=== PATIENT | female | born 1950 | race African-American/Black ===

== ENCOUNTER → 2016-10-15 | Outpatient (CLI) | payer MEDICARE, OTHER ==
--- NOTE | 2016-10-15 10:51 | USB ---
Reason for exam: follow-up at short interval from prior study. History: Patient is postmenopausal and had first child at age 34. Physical Findings: Nurse did not find any significant physical abnormalities on exam. US Breast RT Right breast ultrasound demonstrates a 3 x 1mm lesion too small to characterize at 9 o'clock, suspected tiny cyst or slight duct ectasia versus 3 x 2 x 4mm previously. These results were verbally communicated with the patient and result sheet given to the patient on 10/15/16. ASSESSMENT: Probably benign, BI-RAD 3 RECOMMENDATION: Follow-up diagnostic mammogram of both breasts in 6 months.
== END | disposition home or self-care (01) ==
LOC: RADUSWWP 09:35
PROVIDERS: ATTEND Surgery
DX: R92.8 Other abnormal and inconclusive findings on diagnostic imaging of breast (principal)

== ENCOUNTER 2017-04-22 05:17 | Observation (INO) | payer MEDICARE ==
[2017-04-22] MEDS ORDERED: IPRATROPIUM-ALBUTEROL 3 ML NEB INHALATION STA (05:27)
[2017-04-22] MEDS ORDERED: SODIUM CHLORIDE 0.9% 1,000 ML IV STA (05:27)
[2017-04-22] MEDS ORDERED: SODIUM CHLORIDE 0.9% 500 ML IV STA (05:27)
--- NOTE | 2017-04-22 05:27 | ED ---
General Adult HPI - General Chief complaint: Shortness of Breath Stated complaint: Coughing x 4 weeks Time Seen by Provider: 04/22/17 05:26 Source: patient, RN notes reviewed, old records reviewed Mode of arrival: ambulatory Limitations: no limitations - History of Present Illness Initial comments: This is a 66-year-old female ER for evaluation. This patient presents today for evaluation regarding shortness of breath. Patient does have increased cough and congestion, no history of asthma nonsmoker. Patient denies any viral exposures, chest pain does have chest pain with deep breath as well. - Related Data Home Medications Medication Instructions Recorded Confirmed Hydrocodone/Acetaminophen 1 tab PO TID PRN 05/08/14 04/22/17 [Hydrocodone/Acetaminophen 7.5-325] Allergies Allergy/AdvReac Type Severity Reaction Status Date / Time No Known Allergies Allergy Verified 04/22/17 06:55 Review of Systems ROS Statement: Those systems with pertinent positive or pertinent negative responses have been documented in the HPI. ROS Other: All systems not noted in ROS Statement are negative. Past Medical History Additional Past Medical History / Comment(s): back problems, EDEMA History of Any Multi-Drug Resistant Organisms: None Reported Past Surgical History: Back Surgery, Hysterectomy Additional Past Surgical History / Comment(s): COLONOSCOPY, lower extremety edema Past Anesthesia/Blood Transfusion Reactions: No Reported Reaction Past Psychological History: No Psychological Hx Reported Smoking Status: Former smoker Past Alcohol Use History: None Reported Past Drug Use History: None Reported - Past Family History Brother(s) Family Medical History: Cancer Sister(s) Family Medical History: Cancer General Exam Limitations: no limitations General appearance: alert, in no apparent distress Head exam: Present: atraumatic, normocephalic, normal inspection Eye exam: Present: normal appearance, PERRL, EOMI. Absent: scleral icterus, conjunctival injection, periorbital swelling ENT exam: Present: normal exam, mucous membranes moist Neck exam: Present: normal inspection. Absent: tenderness, meningismus, lymphadenopathy Respiratory exam: Present: normal lung sounds bilaterally, wheezes, accessory muscle use, decreased breath sounds, prolonged expiratory. Absent: respiratory distress, rales, rhonchi, stridor Cardiovascular Exam: Present: regular rate, normal rhythm, normal heart sounds. Absent: systolic murmur, diastolic murmur, rubs, gallop, clicks GI/Abdominal exam: Present: soft, normal bowel sounds. Absent: distended, tenderness, guarding, rebound, rigid Extremities exam: Present: normal inspection, full ROM, normal capillary refill. Absent: tenderness, pedal edema, joint swelling, calf tenderness Back exam: Present: normal inspection Neurological exam: Present: alert, oriented X3, CN II-XII intact Psychiatric exam: Present: normal affect, normal mood Skin exam: Present: warm, dry, intact, normal color. Absent: rash Course Vital Signs 04/22/17 04/22/17 04/22/17 05:18 05:43 06:00 Temperature 98 F Pulse Rate 91 120 H 112 H Respiratory 18 24 Rate Blood Pressure 154/82 O2 Sat by Pulse 99 Oximetry 04/22/17 06:28 Temperature Pulse Rate 82 Respiratory 20 Rate Blood Pressure 164/96 O2 Sat by Pulse 97 Oximetry EKG Findings - EKG Comments: EKG Findings:: EKG shows sinus tachycardia rate of 103, [place] 150, QRS 62, QTC 495 Medical Decision Making - Medical Decision Making 66 [place] or shortness of breath, positive wheezing, severe wheezing even after breathing treatment. Patient be admitted for COPD exacerbation breathing treatments and monitoring her pulmonary status - Lab Data Result diagrams: 04/22/17 05:40 04/23/17 09:54 Lab Results 04/22/17 04/22/17 04/22/17 Range/Units 05:40 05:40 05:40 WBC 7.3 (3.8-10.6) k/uL RBC 4.98 (3.80-5.40) m/uL Hgb 14.5 (11.4-16.0) gm/dL Hct 43.0 (34.0-46.0) % MCV 86.3 (80.0-100.0) fL MCH 29.1 (25.0-35.0) pg MCHC 33.7 (31.0-37.0) g/dL RDW 14.2 (11.5-15.5) % Plt Count 246 (150-450) k/uL Neutrophils % 48 % Lymphocytes % 38 % Monocytes % 5 % Eosinophils % 7 % Basophils % 1 % Neutrophils # 3.5 (1.3-7.7) k/uL Lymphocytes # 2.8 (1.0-4.8) k/uL Monocytes # 0.3 (0-1.0) k/uL Eosinophils # 0.5 (0-0.7) k/uL Basophils # 0.1 (0-0.2) k/uL PT (9.0-12.0) sec INR (<1.2) APTT (22.0-30.0) sec D-Dimer (<0.60) mg/L FEU Sodium 143 (137-145) mmol/L Potassium 3.7 (3.5-5.1) mmol/L Chloride 111 H (98-107) mmol/L Carbon Dioxide 21 L (22-30) mmol/L Anion Gap 11 mmol/L BUN 12 (7-17) mg/dL Creatinine 0.70 (0.52-1.04) mg/dL Est GFR (MDRD) Af Amer >60 (>60 ml/min/1.73 sqM) Est GFR (MDRD) Non-Af >60 (>60 ml/min/1.73 sqM) Glucose 93 (74-99) mg/dL Calcium 9.9 (8.4-10.2) mg/dL Magnesium 1.8 (1.6-2.3) mg/dL Total Bilirubin 0.6 (0.2-1.3) mg/dL AST 29 (14-36) U/L ALT 44 (9-52) U/L Alkaline Phosphatase 76 (38-126) U/L Total Creatine Kinase 177 H (30-135) U/L CK-MB (CK-2) 1.3 (0.0-2.4) ng/mL CK-MB (CK-2) Rel Index 0.7 Troponin I <0.012 (0.000-0.034) ng/mL Total Protein 7.0 (6.3-8.2) g/dL Albumin 4.3 (3.5-5.0) g/dL 04/22/17 Range/Units 05:40 WBC (3.8-10.6) k/uL RBC (3.80-5.40) m/uL Hgb (11.4-16.0) gm/dL Hct (34.0-46.0) % MCV (80.0-100.0) fL MCH (25.0-35.0) pg MCHC (31.0-37.0) g/dL RDW (11.5-15.5) % Plt Count (150-450) k/uL Neutrophils % % Lymphocytes % % Monocytes % % Eosinophils % % Basophils % % Neutrophils # (1.3-7.7) k/uL Lymphocytes # (1.0-4.8) k/uL Monocytes # (0-1.0) k/uL Eosinophils # (0-0.7) k/uL Basophils # (0-0.2) k/uL PT 10.0 (9.0-12.0) sec INR 1.0 (<1.2) APTT 24.8 (22.0-30.0) sec D-Dimer 0.44 (<0.60) mg/L FEU Sodium (137-145) mmol/L Potassium (3.5-5.1) mmol/L Chloride (98-107) mmol/L Carbon Dioxide (22-30) mmol/L Anion Gap mmol/L BUN (7-17) mg/dL Creatinine (0.52-1.04) mg/dL Est GFR (MDRD) Af Amer (>60 ml/min/1.73 sqM) Est GFR (MDRD) Non-Af (>60 ml/min/1.73 sqM) Glucose (74-99) mg/dL Calcium (8.4-10.2) mg/dL Magnesium (1.6-2.3) mg/dL Total Bilirubin (0.2-1.3) mg/dL AST (14-36) U/L ALT (9-52) U/L Alkaline Phosphatase (38-126) U/L Total Creatine Kinase (30-135) U/L CK-MB (CK-2) (0.0-2.4) ng/mL CK-MB (CK-2) Rel Index Troponin I (0.000-0.034) ng/mL Total Protein (6.3-8.2) g/dL Albumin (3.5-5.0) g/dL - Radiology Data Radiology results: report reviewed (Chest x-ray is negative for acute disease), image reviewed Disposition Clinical Impression: Acute exacerbation of chronic obstructive airways disease Disposition: ADMITTED IP TO THIS [facility] Condition: Fair
[2017-04-22] MEDS ORDERED: methylPREDNISolone SOD SUCCI 125 MG/2 ML VIAL IV STA (05:30)
[2017-04-22] MEDS ORDERED: ALBUTEROL NEBULIZED 2.5 MG/3 ML INHALATION STA (05:30)
[2017-04-22] MEDS ORDERED: IPRATROPIUM 0.5 MG/2.5 ML NEBU INHALATION STA (05:30)
[2017-04-22 05:49] LABS: Basophils # (A) 0.1 k/uL (0-0.2); Basophils % (A) 1 %; CH 29.9; CHCM 34.8; Eosinophils # (A) 0.5 k/uL (0-0.7); Eosinophils % (A) 7 %; HDW 2.77; HGB 14.5 gm/dL (11.4-16.0); Luc # (Auto) 0.14; Luc % (Auto) 2; Lymphocytes # (A) 2.8 k/uL (1.0-4.8); Lymphocytes % (A) 38 %; MCH 29.1 pg (25.0-35.0); MCHC 33.7 g/dL (31.0-37.0); MCV 86.3 fL (80.0-100.0); Mean Platelet Volume 7.9; Monocytes # (A) 0.3 k/uL (0-1.0); Monocytes % (A) 5 %; Neutrophils # (A) 3.5 k/uL (1.3-7.7); Neutrophils % (A) 48 %; RBC 4.98 m/uL (3.80-5.40); RDW 14.2 % (11.5-15.5); WBC 7.3 k/uL (3.8-10.6); WBC (Perox) 6.93
[2017-04-22 05:58] LABS: ALT 44 U/L (9-52); AST 29 U/L (14-36); Alkaline Phosphatase 76 U/L (38-126); Anion Gap 11 mmol/L; Blood Urea Nitrogen 12 mg/dL (7-17); Calcium 9.9 mg/dL (8.4-10.2); Carbon Dioxide 21 mmol/L (22-30); Chloride 111 mmol/L (98-107); Glucose 93 mg/dL (74-99); Magnesium 1.8 mg/dL (1.6-2.3); Non-African American GFR(MDRD) >60 (>60 ml/min/1.73 sqM); Potassium 3.7 mmol/L (3.5-5.1); Sodium 143 mmol/L (137-145); Total Bilirubin 0.6 mg/dL (0.2-1.3)
[2017-04-22 06:05] LABS: Partial Thromboplastin Time 24.8 sec (22.0-30.0)
[2017-04-22 06:07] LABS: Creatine Kinase 177 U/L (30-135)
[2017-04-22 06:20] LABS: Creatine Kinase MB 1.3 ng/mL (0.0-2.4); Troponin I <0.012 ng/mL (0.000-0.034)
[2017-04-22] MEDS ORDERED: AZITHROMYCIN 500 MG in SODIUM CHLORIDE 0.9% 250 ML IVPB STA (06:42)
--- NOTE | 2017-04-22 07:13 | XR ---
EXAM: XR Chest, 2 Views CLINICAL HISTORY: Reason: difficulty breathing sob/cough/wheezing x 1 month. TECHNIQUE: Frontal and lateral views of the chest. COMPARISON: 04/27/16 FINDINGS: Lungs: Unremarkable. No consolidation. Pleural space: Unremarkable. No pneumothorax. Heart: Unremarkable. No cardiomegaly. Mediastinum: Unremarkable. Bones/joints: Mild degenerative changes of the thoracic spine. Vasculature: Stable tortuous aorta. IMPRESSION: No evidence of acute cardiopulmonary disease.
[2017-04-22] MEDS: SODIUM CHLORIDE 0.9% 1,000 ML IV SCH ×2 (08:48→18:21)
[2017-04-22] MEDS: ENOXAPARIN 40 MG/0.4 ML SYRINGE SQ SCH (12:37)
[2017-04-22] MEDS: methylPREDNISolone SOD SUCCI 125 MG/2 ML VIAL IV SCH ×3 (12:37→23:11)
[2017-04-22 15:19] VITALS: BMI 31.1
[2017-04-22] MEDS ORDERED: HYDROcodone/APAP 7.5-325MG 1 EACH TAB PO PRN (16:12)
--- NOTE | 2017-04-22 16:12 | P.HPIM ---
History of Present Illness H&P Date: 04/22/17 Chief Complaint: As of breath 66-year-old female presented on the day of admission to the emergency room to be evaluated for chief complaint of developing shortness of breath symptomatic increased cough decreased endurance. Patient denied any viral exposures. Denying chest pain. Patient was seen in the emergency room admitted to the services of the attending with the plan to treat the patient for an acute exacerbation of COPD. Review of Systems Essentially unremarkable except as mentioned in the present illness Past Medical History Past Medical History: Asthma, COPD Additional Past Medical History / Comment(s): Pt states her primary care physician has thought she probably had COPD, bronchitis, sinus problems at times , DDD, back pain, bilateral lower extremity edema, neuropathy bilateral legs/ feet at times, diverticular dx. History of Any Multi-Drug Resistant Organisms: None Reported Past Surgical History: Back Surgery, Hysterectomy Additional Past Surgical History / Comment(s): COLONOSCOPY, bilateral eyes cataract removal with lens implants, hemorrhoidectomy, steroid injections to back, low back surgery. Past Anesthesia/Blood Transfusion Reactions: No Reported Reaction Smoking Status: Former smoker - Past Family History Brother(s) Family Medical History: Cancer Additional Family Medical History / Comment(s): One brother of lung cancer and another brother of stomach cancer. Sister(s) Family Medical History: Cancer Additional Family Medical History / Comment(s): Sister of "female" cancer. Medications and Allergies Home Medications Medication Instructions Recorded Confirmed Type Hydrocodone/Acetaminophen 1 tab PO TID PRN 05/08/14 04/22/17 History [Hydrocodone/Acetaminophen 7.5-325] Allergies Allergy/AdvReac Type Severity Reaction Status Date / Time No Known Allergies Allergy Verified 04/22/17 06:55 Physical Exam Vitals: Vital Signs Temp Pulse Pulse Resp BP BP BP 04/22/17 15:35 98.7 F 100 18 126/65 04/22/17 12:00 84 18 04/22/17 11:37 98.4 F 84 18 117/62 04/22/17 08:00 102 H 18 04/22/17 07:55 97.4 F L 102 H 18 166/96 04/22/17 06:28 82 20 164/96 04/22/17 06:00 112 H 04/22/17 05:43 120 H 24 04/22/17 05:18 98 F 91 18 154/82 Pulse Ox 04/22/17 15:35 94 L 04/22/17 12:00 04/22/17 11:37 95 04/22/17 08:00 04/22/17 07:55 95 04/22/17 06:28 97 04/22/17 06:00 04/22/17 05:43 04/22/17 05:18 99 Intake and Output 04/22/17 04/22/17 04/22/17 06:59 14:59 22:59 Intake Total 480 Balance 480 Intake: Oral 480 Other: Voiding Method Toilet Weight 72.575 kg 72.4 kg Patient Weight 04/23/17 06:59 Weight 72.4 kg GENERAL APPEARANCE: 66-year-old patient is alert, oriented, in no acute distress. VITAL SIGNS: Reviewed HEENT: Head is normocephalic and atraumatic. Pupils are equal and reactive. The nares are patent. Oropharynx is clear without lesions. NECK: Supple without lymphadenopathy. Traches midline. HEART: S1, S2. Regular rate and rhythm. No murmur noted denying chest pain LUNGS: I lateral prolonged expiratory wheezing noted no cough noted ABDOMEN: Soft, nontender, nondistended with good bowel sounds. No peritoneal signs. No palpable organomegaly or masses. EXTREMITIES: Normal skin color and turgor. No cyanosis, rash, ulceration, clubbing or edema. Radial pedal pulses are 2/4 bilaterally. NEUROLOGICAL: No focal deficits. Strength and sensation are grossly intact. Results CBC & Chem 7: 04/22/17 05:40 04/22/17 05:40 Labs: Abnormal Lab Results - Last 24 Hours (Table) 04/22/17 04/22/17 Range/Units 05:40 05:40 Chloride 111 H (98-107) mmol/L Carbon Dioxide 21 L (22-30) mmol/L Total Creatine Kinase 177 H (30-135) U/L Thrombosis Risk Factor Assmnt - Choose All That Apply Any of the Below Risk Factors Present?: Yes Each Factor Represents 1 point: Abnormal pulmonary function (COPD), Obesity ( BMI >25) Other Risk Factors: Yes Each Risk Factor Represents 2 Points: Age 61-74 years Other congenital or acquired thrombophilia - If yes, enter type in comment: No Thrombosis Risk Factor Assessment Total Risk Factor Score: 4 Thrombosis Risk Factor Assessment Level: Moderate Risk Assessment and Plan Plan: Impression Present on admission shortness of breath due to an acute exacerbation COPD Chronic pain with narcotic dependency Known COPD Plan Respiratory treatments as ordered Solu-Medrol 60 IV every 6 monitor the response DVT and GI prophylaxis IV zithomax as ordered Further recommendations pending The above impression and plan of care have been discussed and directed by signing physician. Ana Grady nurse practitioner acting as scribe for signing physician.
[2017-04-22] MEDS: IPRATROPIUM-ALBUTEROL 3 ML NEB INHALATION PRN ×2 (16:54→20:52)
[2017-04-22 20:39] LABS: Glucose,Whole Blood 123 mg/dL (75-99)
[2017-04-22] MEDS: INSULIN LISPRO (humaLOG) 300 UNIT/3 ML VIAL SQ SCH (20:48)
[2017-04-22] MEDS: FAMOTIDINE 20 MG TAB PO SCH (20:49)
[2017-04-22] MEDS: MONTELUKAST 10 MG TAB PO SCH (20:49)
[2017-04-22] MEDS: BUDESONIDE 0.5 MG/2 ML NEBU INHALATION SCH (20:52)
[2017-04-23] MEDS: methylPREDNISolone SOD SUCCI 125 MG/2 ML VIAL IV SCH (06:02)
[2017-04-23 07:10] LABS: Glucose,Whole Blood 116 mg/dL (75-99)
[2017-04-23] MEDS ORDERED: ACETAMINOPHEN TAB 325 MG TAB PO PRN (07:45)
[2017-04-23] MEDS: INSULIN LISPRO (humaLOG) 300 UNIT/3 ML VIAL SQ SCH ×3 (07:45→18:12)
[2017-04-23] MEDS: ENOXAPARIN 40 MG/0.4 ML SYRINGE SQ SCH (08:52)
[2017-04-23] MEDS ORDERED: AZITHROMYCIN 500 MG in SODIUM CHLORIDE 0.9% 250 ML IVPB SCH (09:00)
[2017-04-23] MEDS: IPRATROPIUM-ALBUTEROL 3 ML NEB INHALATION PRN ×3 (09:03→18:02)
[2017-04-23] MEDS: BUDESONIDE 0.5 MG/2 ML NEBU INHALATION SCH ×2 (09:03→21:15)
--- NOTE | 2017-04-23 09:54 | P.PN ---
Subjective 66-year-old female being seen at the request of nursing staff after patient developed an acute onset episode of increase in heart rate up into the 140s with chest tightness twelve-lead EKG shows sinus tachycardia heart rate in the 130s. Patient states that she feels like her heart is racing tightness in the chest. Patient's initial presentation to the emergency room was checked for shortness of breath symptomatic felt to be due to an acute exacerbation of COPD. Patient denies prior episodes. lung alas coarse rhonchi there is no audible wheezing this morning patient has no cardiac history Objective - Vital Signs Vital signs: Vital Signs Temp 97.8 F 04/23/17 08:00 Pulse 92 04/23/17 09:12 Resp 18 04/23/17 08:00 BP 137/80 04/23/17 08:00 Pulse Ox 94 L 04/23/17 08:00 Intake & Output 04/22/17 04/23/17 04/23/17 18:59 06:59 18:59 Intake Total 720 600 Balance 720 600 Weight 72.4 kg Intake: IV 400 Sodium Chloride 0.9% 1, 400 000 ml @ 100 mls/hr IV . Q10H [facility] Rx#:[id number] Oral 720 200 Other: Voiding Method Toilet Toilet Toilet Diaper Diaper # Voids 2 1 1 - Exam Physical exam 66-year-old female sitting up in bed states she can feel her heart feels like it 's racing appears in no acute distress Lungs coarse rhonchi no wheezing noted no cough noted on room air Heart S1-S2 audible regular no murmur noted Abdomen soft nontender reports no nausea vomiting Extremities no edema to upper or lower extremities - Labs CBC & Chem 7: 04/22/17 05:40 04/22/17 05:40 Labs: Abnormal Lab Results - Last 24 Hours (Table) 04/22/17 04/23/17 Range/Units 20:31 07:06 POC Glucose (mg/dL) 123 H 116 H (75-99) mg/dL Microbiology - Last 24 Hours (Table) 04/22/17 06:55 Blood Culture - Preliminary Blood No Growth after 24 hours Assessment and Plan Plan: Impression Present on admission shortness of breath due to an acute exacerbation COPD Chronic pain with narcotic dependency Known COPD Sudden onset acute sinus tachycardia with heart palpitations Episode chest tightness Plan Respiratory treatments as ordered We'll stop Solu-Medrol 60 IV every 6 monitor the response DVT and GI prophylaxis IV zithomax as ordered Further recommendations pending Cardiac enzymes 3 sets Echocardiogram evaluate LV function Cardiology consultation requested The above impression and plan of care have been discussed and directed by signing physician. Ana Grady nurse practitioner acting as scribe for signing physician.
[2017-04-23 10:23] LABS: ALT 35 U/L (9-52); AST 23 U/L (14-36); Alkaline Phosphatase 75 U/L (38-126); Anion Gap 11 mmol/L; Blood Urea Nitrogen 10 mg/dL (7-17); Calcium 9.3 mg/dL (8.4-10.2); Carbon Dioxide 19 mmol/L (22-30); Chloride 114 mmol/L (98-107); Glucose 192 mg/dL (74-99); Magnesium 1.7 mg/dL (1.6-2.3); Non-African American GFR(MDRD) >60 (>60 ml/min/1.73 sqM); Potassium 3.6 mmol/L (3.5-5.1); Sodium 144 mmol/L (137-145); Total Bilirubin 0.5 mg/dL (0.2-1.3); Total Protein 6.8 g/dL (6.3-8.2)
[2017-04-23 12:07] LABS: Glucose,Whole Blood 122 mg/dL (75-99)
[2017-04-23 12:32] LABS: Hemoglobin A1C 5.5 % (4.2-6.1)
[2017-04-23] MEDS: ONDANSETRON 4 MG/2 ML VIAL IVP PRN ×2 (12:42→18:17)
[2017-04-23] MEDS: SODIUM CHLORIDE 0.9% 1,000 ML IV SCH ×2 (12:46→22:08)
[2017-04-23] MEDS: VERAPAMIL 40 MG TAB PO SCH ×2 (16:23→21:33)
[2017-04-23 17:01] LABS: Glucose,Whole Blood 103 mg/dL (75-99)
[2017-04-23] MEDS ORDERED: METOPROLOL TARTRATE 50 MG TAB PO STA (18:22)
--- NOTE | 2017-04-23 18:55 | P.CNPUL ---
History of Present Illness Consult date: 04/23/17 Requesting physician: Amador Guzman Reason for consult: dyspnea Chief complaint: Shortness of breath History of present illness: This is a very pleasant 66-year-old female patient who follows with Dr. Amador Guzman as her primary care physician. His a history of chronic neck and back pain, lower extremity edema, remote history of smoking and suspected COPD. She has been maintained on a Qvar 40 mg inhaler and Ventolin HFA. She has not been seen by a menu planner in the past. She states approximately one month ago she started having shortness of breath cough and congestion. She was treated with antibiotics 2 in the outpatient setting at which time she did get better but continued to have recurrence of shortness of breath. She presented here to the emergency room for the same. Her chest x-ray reveals no evidence of an acute cardiopulmonary process. He is seen today in consultation on the observation unit. She is currently awake and alert in no acute distress. She does state she has continued shortness of breath with cough and congestion. She is dyspneic on exertion. Been initiated on bronchodilators and azithromycin. She was intolerant to IV Solu-Medrol with complaints of palpitations. She is tolerating oral prednisone. Maintaining good O2 saturations in the mid 90s on room air. She's been afebrile. No leukocytosis. Blood cultures reveal no growth to date. Review of Systems 14 point review of system was conducted. All negative other than as mentioned in HPI. Past Medical History Past Medical History: Asthma, COPD Additional Past Medical History / Comment(s): back problems, EDEMA History of Any Multi-Drug Resistant Organisms: None Reported Past Surgical History: Back Surgery, Hysterectomy Additional Past Surgical History / Comment(s): COLONOSCOPY, lower extremety edema Past Anesthesia/Blood Transfusion Reactions: No Reported Reaction Past Psychological History: No Psychological Hx Reported Smoking Status: Former smoker Past Alcohol Use History: None Reported Past Drug Use History: None Reported - Past Family History Brother(s) Family Medical History: Cancer Additional Family Medical History / Comment(s): One brother of lung cancer and another brother of stomach cancer. Sister(s) Family Medical History: Cancer Additional Family Medical History / Comment(s): Sister of "female" cancer. Medications and Allergies Home Medications Medication Instructions Recorded Confirmed Type Hydrocodone/Acetaminophen 1 tab PO TID PRN 05/08/14 04/22/17 History [Hydrocodone/Acetaminophen 7.5-325] Allergies Allergy/AdvReac Type Severity Reaction Status Date / Time No Known Allergies Allergy Verified 04/22/17 06:55 Physical Exam Vitals: Vital Signs Temp Pulse Pulse Pulse Pulse Resp BP 04/23/17 18:14 108 H 04/23/17 18:02 100 04/23/17 16:00 97.8 F 100 16 127/75 04/23/17 12:17 110 H 14 04/23/17 12:05 110 H 14 04/23/17 12:00 97.7 F 113 H 14 141/59 04/23/17 09:46 130 H 04/23/17 09:12 92 04/23/17 09:05 92 04/23/17 08:00 97.8 F 96 18 137/80 04/23/17 03:54 98.1 F 95 18 140/78 04/23/17 03:16 16 04/22/17 23:46 98.4 F 104 H 16 127/68 04/22/17 23:42 18 04/22/17 21:02 84 04/22/17 20:52 88 04/22/17 19:46 98.4 F 106 H 18 145/78 04/22/17 19:40 18 Pulse Ox 04/23/17 18:14 04/23/17 18:02 95 04/23/17 16:00 95 04/23/17 12:17 04/23/17 12:05 04/23/17 12:00 96 04/23/17 09:46 04/23/17 09:12 04/23/17 09:05 04/23/17 08:00 94 L 04/23/17 03:54 95 04/23/17 03:16 04/22/17 23:46 94 L 04/22/17 23:42 04/22/17 21:02 04/22/17 20:52 04/22/17 19:46 95 04/22/17 19:40 Intake and Output 04/23/17 04/23/17 04/23/17 06:59 14:59 22:59 Intake Total 600 240 Balance 600 240 Intake: IV 400 Sodium Chloride 0.9% 1, 400 000 ml @ 100 mls/hr IV . Q10H [facility] Rx#:[id number] Oral 200 240 Other: Voiding Method Toilet Toilet Toilet Diaper Diaper Diaper # Voids 1 1 GENERAL EXAM: Alert, active, comfortable in no apparent distress. HEAD: Normocephalic. EYES: Normal reaction of pupils, equal size. NOSE: Clear with pink turbinates. THROAT: No erythema or exudates. NECK: No masses, no JVD. CHEST: No chest wall deformity. LUNGS: Equal air entry with no crackles, wheeze, rhonchi or dullness. CVS: S1 and S2 normal with no audible murmurs, regular rhythm. ABDOMEN: No hepatosplenomegaly, normal bowel sounds, no guarding or rigidity. SPINE: No scoliosis or deformity SKIN: No rashes CENTRAL NERVOUS SYSTEM: No focal deficits, tone is normal in all 4 extremities. Remedies: There is trace peripheral edema. No clubbing. Peripheral pulses are intact. Results - Laboratory Findings CBC and BMP: 04/22/17 05:40 04/23/17 09:54 PT/INR, D-dimer PT 10.0 sec (9.0-12.0) 04/22/17 05:40 INR 1.0 (<1.2) 04/22/17 05:40 D-Dimer 0.44 mg/L FEU (<0.60) 04/22/17 05:40 Abnormal lab findings: Abnormal Labs 04/22/17 04/22/17 04/22/17 05:40 05:40 20:31 Chloride 111 H Carbon Dioxide 21 L Glucose POC Glucose (mg/dL) 123 H Total Creatine Kinase 177 H TSH 04/23/17 04/23/17 04/23/17 07:06 09:54 09:54 Chloride 114 H Carbon Dioxide 19 L Glucose 192 H POC Glucose (mg/dL) 116 H Total Creatine Kinase TSH 0.432 L 04/23/17 04/23/17 12:04 16:53 Chloride Carbon Dioxide Glucose POC Glucose (mg/dL) 122 H 103 H Total Creatine Kinase TSH - Diagnostic Findings Chest x-ray: image reviewed (No acute cardiopulmonary process.) Assessment and Plan Plan: Impression: #1 Acute exacerbation of chronic obstructive pulmonary disease, complicated by purulent tracheobronchitis. Failed outpatient treatment. #2 Remote history of chronic tobacco use. #3 Chronic neck and back pain. #4 History of lower extremity peripheral edema. Her grafts plan: The patient was seen and evaluated by Dr. Flowers. Her chest x-ray and labs were reviewed. No evidence of pneumonia at this time. We'll continue with her bronchodilators, prednisone taper, empiric antibiotics in the form of azithromycin. She would benefit from an outpatient workup including full pulmonary function testing to evaluate the severity of her COPD and make recommendations for her maintenance medications. Could increase Qvar to 80 mg for now. Probable discharge in the a.m. We'll continue to follow. Time with Patient: Greater than 30
[2017-04-23] MEDS: MONTELUKAST 10 MG TAB PO SCH (19:23)
[2017-04-23] MEDS: FAMOTIDINE 20 MG TAB PO SCH (19:23)
--- NOTE | 2017-04-23 19:24 | ECHOF ---
Referral Reason:LV function MEASUREMENTS -------- HEIGHT: 127.0 cm WEIGHT: 72.6 kg BP: IVSd: 1.1 cm (0.6 - 1.1) LVIDd: 3.5 cm (3.9 - 5.3) LVPWd: 0.9 cm (0.6 - 1.1) IVSs: 1.2 cm LVIDs: 2.2 cm LVPWs: 1.2 cm LA Diam: 3.1 cm (2.7 - 3.8) LAESV Index (A-L): 13.23 ml/m Ao Diam: 2.8 cm (2.0 - 3.7) AV Cusp: 1.6 cm (1.5 - 2.6) LA Diam: 3.3 cm (2.7 - 3.8) MV EXCURSION: 15.792 mm (> 18.000) MV EF SLOPE: 114 mm/s (70 - 150) EPSS: 0.1 cm MV E Román: 1.47 m/s MV DecT: 127 ms MV A Román: 0.36 m/s MV E/A Ratio: 4.10 RAP: 5.00 mmHg RVSP: 10.73 mmHg FINDINGS -------- Resting tachycardia (HR>100bpm). This was a technically adequate study. There is mild concentric left ventricular hypertrophy. Overall left ventricular systolic function is normal with, an EF between 55 - 60 %. The right ventricle is normal in size. The left atrial size is normal. The right atrial size is normal. There is mild aortic valve sclerosis. There is no evidence of aortic regurgitation. Mild mitral regurgitation is present. Mild tricuspid regurgitation present. There is no evidence of pulmonary hypertension. The right ventricular systolic pressure, as measured by Doppler, is 10.73mmHg. There is no pulmonic regurgitation present. The aortic root size is normal. Echo free space may represent effusion or a pericardial fat pad. CONCLUSIONS -------- 1. There is mild concentric left ventricular hypertrophy. 2. Overall left ventricular systolic function is normal with, an EF between 55 - 60 %. 3. There is mild aortic valve sclerosis. 4. Mild mitral regurgitation is present. 5. Mild tricuspid regurgitation present. 6. There is no evidence of pulmonary hypertension. 7. The right ventricular systolic pressure, as measured by Doppler, is 10.73mmHg. BLACK POWDER GLAZING OPERATOR: Scarlett Huerta RDCS
[2017-04-24] MEDS: METOPROLOL TARTRATE 50 MG TAB PO SCH ×3 (00:52→08:27)
[2017-04-24] MEDS: SODIUM CHLORIDE 0.9% 1,000 ML IV SCH (04:32)
[2017-04-24 07:40] VITALS: BP 114/62; RESP 16; TEMP 98.5
[2017-04-24] MEDS: IPRATROPIUM-ALBUTEROL 3 ML NEB INHALATION PRN (08:07)
[2017-04-24] MEDS: BUDESONIDE 0.5 MG/2 ML NEBU INHALATION SCH (08:07)
[2017-04-24] MEDS: ENOXAPARIN 40 MG/0.4 ML SYRINGE SQ SCH (08:26)
[2017-04-24] MEDS: VERAPAMIL 40 MG TAB PO SCH (08:27)
[2017-04-24 08:29] VITALS: PULSE 84
[2017-04-24] MEDS ORDERED: AZITHROMYCIN 500 MG TAB PO SCH (09:00)
[2017-04-24] MEDS ORDERED: predniSONE 20 MG TAB PO SCH (09:00)
== END 2017-04-24 12:09 | disposition home or self-care (01) ==
LOC: EC 05:17 → 3OBS 06:41
PROVIDERS: ADMIT Family Medicine; ATTEND Family Medicine
DX: J44.1 Chronic obstructive pulmonary disease with (acute) exacerbation (principal); Z87.891 Personal history of nicotine dependence; G89.29 Other chronic pain; F11.20 Opioid dependence, uncomplicated; M54.2 Cervicalgia; M54.9 Dorsalgia, unspecified; J40 Bronchitis, not specified as acute or chronic; R60.0 Localized edema
CPT/HCPCS: 96361 ×3; 96375 ×3; 93005 ×2; 96365; 96366 ×2; 96372 ×3; 96376 ×2; 99285; 36415; 94640 ×5; 94760; 93306; 85379; 84439; 84481; 80053 ×2; 84443; 83036; 82550; 82553; 83735 ×2; 84484 ×2; 85025; 85610; 85730; 87040; 71020; G0378 ×3; J2930 ×2; J2405; J0456 ×2; J1650 ×3; J7512

== ENCOUNTER → 2017-05-19 | Outpatient (CLI) | payer MEDICARE ==
--- NOTE | 2017-05-19 12:04 | MM ---
Reason for exam: additional evaluation requested from prior study. Last mammogram was performed 1 year and 2 months ago. History: Patient is postmenopausal and had first child at age 34. Physical Findings: Nurse did not find any significant physical abnormalities on exam. MG 3D Diag Mammo W/Cad ROBSON Bilateral CC and MLO view(s) were taken. Prior study comparison: March 30, 2016, bilateral MG 3d screening mammo w/cad. April 10, 2015, bilateral MG screening mammo w CAD. The breast tissue is heterogeneously dense. This may lower the sensitivity of mammography. There is chronic nodularity bilaterally. No significant new findings when compared with previous films. These results were verbally communicated with the patient and result sheet given to the patient on 05/19/17. ASSESSMENT: Benign, BI-RAD 2 RECOMMENDATION: Routine screening mammogram of both breasts in 1 year.
--- NOTE | 2017-05-19 15:10 | BD ---
EXAMINATION TYPE: MG DEXA axial skeleton. DATE OF EXAM: 05/19/2017 COMPARISON: 2003 CLINICAL HISTORY: POST MENOPAUSAL Height: 5' Weight: 158 FRAX RISK QUESTIONS: Alcohol (3 or more units per day): no Family History (Parent hip fracture): no Glucocorticoids (More than 3mos): no (Ex: prednisone, prednisolone, methylprednisolone, dexamethasone, and hydrocortisone). History of Fracture in Adulthood: yes Secondary Osteoporosis: 1. Type 1 Diabetes: no 2. Hyperthyroidism: no 3. Menopause before 45: no 4. Malnutrition: no 5. Chronic liver disease: no Rheumatoid Arthritis: no Current Tobacco Use: no RISK FACTORS HISTORY OF: Active: Diet low in dairy products/other sources of calcium: Postmenopausal woman: MEDICATIONS: Additional Medications: pain Additional History: post menopausal EXAM MEASUREMENTS: Bone mineral densitometry was performed using the [facility]. Bone mineral density as measured about the Lumbar spine is: ----- L1-L4(G/cm2): 1.029 T Score Values are as follows: ----- L2: -2.0 ----- L3: -0.5 ----- L4: -2.0 ----- L1-L4:-1.3 Bone mineral density has: Decreased -9.8% since study of: 04/02/2004 Bone mineral density about the R hip (g/cm2): 0.851 Bone mineral density about the L hip (g/cm2): 0.756 T Score values are as follows: -----R Neck: -1.3 -----L Neck: -2.0 -----R Total: -1.1 -----L Total: -1.7 Bone mineral density has: Decreased -12.3% since study of: 04/02/2004 IMPRESSION: Osteopenia (T Score between -2.5 and -1 as noted by T score values:L1-L4, Win Hips There is slightly increased risk of fracture and the patient may be considered for treatment. Re-Screen 2-5 years. NOTE: T-SCORE=SD OF THE YOUNG ADULT MEAN.
== END | disposition home or self-care (01) ==
LOC: RADMAMWWP 11:26
PROVIDERS: ATTEND Family Medicine
DX: R92.8 Other abnormal and inconclusive findings on diagnostic imaging of breast (principal); M85.88 Other specified disorders of bone density and structure, other site
CPT/HCPCS: 77080; G0204; G0279

== ENCOUNTER → 2017-09-15 | Outpatient (CLI) | payer MEDICARE ==
--- NOTE | 2017-09-16 00:02 | MR ---
EXAMINATION TYPE: MR lumbar spine wo/w con DATE OF EXAM: 09/15/2017 COMPARISON: NONE HISTORY: Low back pain surgery 2006, Gadavist 7.5 TECHNIQUE: Multiplanar, multisequence images of the lumbar spine were acquired utilizing 7.5 mL intravenous Gada vist gadolinium contrast. Lumbar vertebra have normal alignment. Disc spaces are fairly well-maintained. There is slight decrea sed signal in the discs on the T2 images. There is no compression fracture. There is some hypertrophi c facet arthropathy at L4-5 with mild lateral recess stenosis. The lumbar neural foramina are widely patent. Lumbar nerve roots appear normal. There is no spinal stenosis. There is no evidence of lumbar disc herniation. There is apparent surgery at L5. The visualized sacroiliac joints appear normal. I see no pathologic enhancement.. IMPRESSION: Mild facet arthropathy at L4-5. No lumbar disc herniation. No spinal stenosis.
== END | disposition home or self-care (01) ==
LOC: RADMRIMAIN 16:07
PROVIDERS: ATTEND Family Medicine
DX: M46.86 Other specified inflammatory spondylopathies, lumbar region (principal); M54.16 Radiculopathy, lumbar region
CPT/HCPCS: 72158; A9581

== ENCOUNTER → 2018-08-02 | Outpatient (CLI) | payer MEDICARE ==
--- NOTE | 2018-08-08 10:12 | MM ---
Reason for exam: screening (asymptomatic). Last mammogram was performed 1 year and 2 months ago. History: Patient is postmenopausal and had first child at age 34. Physical Findings: A clinical breast exam by your physician is recommended on an annual basis and results should be correlated with mammographic findings. MG 3D Screening Mammo W/Cad Bilateral CC and MLO view(s) were taken. Prior study comparison: May 19, 2017, bilateral MG 3d diag mammo w/cad [facility]. March 30, 2016, bilateral MG 3d screening mammo w/cad. The breast tissue is heterogeneously dense. This may lower the sensitivity of mammography. There is chronic nodularity in the left breast. No significant changes when compared with prior studies. ASSESSMENT: Negative, BI-RAD 1 RECOMMENDATION: Routine screening mammogram of both breasts in 1 year.
== END | disposition home or self-care (01) ==
LOC: RADMAMWWP 16:56
PROVIDERS: ATTEND Family Medicine
DX: Z12.31 Encounter for screening mammogram for malignant neoplasm of breast (principal)
CPT/HCPCS: 77063; 77067

== ENCOUNTER → 2019-07-19 | Outpatient (CLI) | payer MEDICARE ==
--- NOTE | 2019-07-19 15:26 | XR ---
EXAMINATION TYPE: XR chest 2V DATE OF EXAM: 07/19/2019 COMPARISON: 04/22/2017 HISTORY: TB screening TECHNIQUE: Frontal and lateral views of the chest are obtained. FINDINGS: There is a very subtle rounded density in the left costophrenic angle. No apical cavitary lesion is seen The cardiac silhouette size is within normal limits. The osseous structures are int act. IMPRESSION: Subtle rounded density near the left costophrenic angle. Given its subtle nature short-t erm follow-up chest x-ray could be to ensure is not artifactual. If this persists chest CT would be r ecommended.
== END | disposition home or self-care (01) ==
LOC: RADXRMAIN 15:07
PROVIDERS: ATTEND Family Medicine
DX: Z11.1 Encounter for screening for respiratory tuberculosis (principal); J98.4 Other disorders of lung
CPT/HCPCS: 71046

== ENCOUNTER 2019-07-22 15:03 | Inpatient (IN) | payer MEDICARE ==
[2019-07-22] MEDS ORDERED: SODIUM CHLORIDE 0.9% 1,000 ML IV STA (15:36)
[2019-07-22] MEDS ORDERED: ONDANSETRON 4 MG/2 ML VIAL IVP STA (15:36)
--- NOTE | 2019-07-22 15:46 | ED ---
Abdominal Pain HPI - General Source: patient, RN notes reviewed Mode of arrival: ambulatory Limitations: no limitations <Akbar Parra - Last Filed: 07/22/19 16:36> <Chula Guerrero - Last Filed: 07/25/19 01:35> - General Chief Complaint: Abdominal Pain Stated Complaint: Vomiting Time Seen by Provider: 07/22/19 15:30 - History of Present Illness Initial Comments: 68-year-old female presents emergency Department chief complaint abdominal pain. Patient had worsening abdominal pain or left lower quadrant since Wednesday after she states that she ate some pork chops. Patient states prior to that she was not eating much because she was treated for C. diff. Patient finished a course of vancomycin. This was prescribed by her PCP after stool studies were performed. Patient has no history of diverticulitis. Patient reports no known fever or chills but states that she's felt hot and cold. She doesn't nausea and vomiting. Denies any chest pain, palpitations or any prior cardiac disease. Patient states takes Flexeril for back pain and no other medications currently. Patient has no dysuria no hematuria (Akbar Parra) - Related Data Home Medications Medication Instructions Recorded Confirmed Hydrocodone/Acetaminophen 1 tab PO TID PRN 05/08/14 07/22/19 [Hydrocodone/Acetaminophen 7.5-325] Acetaminophen Tab [Tylenol Tab] 1,000 mg PO Q6H PRN 07/22/19 07/22/19 Cyclobenzaprine [Flexeril] 5 mg PO TID PRN 07/22/19 07/22/19 Montelukast [Singulair] 10 mg PO DAILY PRN 07/22/19 07/22/19 Allergies Allergy/AdvReac Type Severity Reaction Status Date / Time No Known Allergies Allergy Verified 07/22/19 18:47 Review of Systems ROS Other: All systems not noted in ROS Statement are negative. <Akbar Parra - Last Filed: 07/22/19 16:36> ROS Other: All systems not noted in ROS Statement are negative. <Chula Guerrero - Last Filed: 07/25/19 01:35> ROS Statement: Those systems with pertinent positive or pertinent negative responses have been documented in the HPI. Past Medical History Past Medical History: Asthma, COPD Additional Past Medical History / Comment(s): back problems, EDEMA History of Any Multi-Drug Resistant Organisms: C-DIFF Date of last positivie culture/infection: jun 2019 MDRO Source:: stool Past Surgical History: Back Surgery, Hysterectomy Additional Past Surgical History / Comment(s): COLONOSCOPY, lower extremety edema Past Anesthesia/Blood Transfusion Reactions: No Reported Reaction Past Psychological History: No Psychological Hx Reported Smoking Status: Former smoker Past Alcohol Use History: None Reported Past Drug Use History: None Reported - Past Family History Brother(s) Family Medical History: Cancer Additional Family Medical History / Comment(s): One brother of lung cancer and another brother of stomach cancer. Sister(s) Family Medical History: Cancer Additional Family Medical History / Comment(s): Sister of "female" cancer. <Akbar Parra - Last Filed: 07/22/19 16:36> General Exam Limitations: no limitations General appearance: alert, in no apparent distress Head exam: Present: atraumatic, normocephalic, normal inspection Eye exam: Present: normal appearance, PERRL, EOMI. Absent: scleral icterus, conjunctival injection, periorbital swelling ENT exam: Present: normal exam, normal oropharynx, mucous membranes moist Neck exam: Present: normal inspection, full ROM. Absent: tenderness, meningismus, lymphadenopathy Respiratory exam: Present: normal lung sounds bilaterally. Absent: respiratory distress, wheezes, rales, rhonchi, stridor Cardiovascular Exam: Present: normal rhythm, tachycardia, normal heart sounds. Absent: systolic murmur, diastolic murmur, rubs, gallop, clicks GI/Abdominal exam: Present: soft, tenderness (moderate left lower quadrant), normal bowel sounds. Absent: distended, guarding, rebound, rigid Back exam: Absent: CVA tenderness (R), CVA tenderness (L) Skin exam: Present: warm, dry, intact, normal color. Absent: rash <Akbar Parra - Last Filed: 07/22/19 16:36> Course Vital Signs 07/22/19 07/22/19 07/22/19 15:23 16:34 17:05 Temperature 98.7 F 102.5 F H 103.2 F H Pulse Rate 139 H 139 H Respiratory 18 18 Rate Blood Pressure 149/79 141/100 O2 Sat by Pulse 95 96 Oximetry 07/22/19 07/22/19 07/22/19 18:13 18:58 19:35 Temperature 102 F H 99.4 F 100.8 F H Pulse Rate 132 H 120 H 112 H Respiratory 18 18 Rate Blood Pressure 135/86 131/87 O2 Sat by Pulse 94 L 96 95 Oximetry Medical Decision Making - Lab Data Result diagrams: 07/22/19 15:44 <Akbar Parra - Last Filed: 07/22/19 16:36> - Lab Data Result diagrams: 07/24/19 06:14 07/24/19 22:12 <Chula Guerrero Nury - Last Filed: 07/25/19 01:35> - Medical Decision Making I did review the patient's laboratory studies. A demonstrates a white blood cell count of 11.7. Urinalysis shows moderate blood, trace of esterase, 32 red blood cells, 10 white blood cells and rare mucous. CT of the patient's abdomen and pelvis demonstrates a left lower lobe consolidation consistent with pneumonia. No acute process within the abdomen or pelvis. I reevaluated the patient. After Tylenol and fluids the patient continues to have 102 fever. Her heart rate is persistently in the 130s. Because of the patient's surgical criteria did recommend hospital admission for which patient did agree. She'll be admitted to Dr. Guzman. He requested that Dr. Rasmussen be placed on consult. I did provide her with an additional 500 mL bolus that she meets or sepsis bolus criteria. Patient agreed with the treatment plan and was admitted to the floor (YolandaChula Nury) - Lab Data Lab Results 07/22/19 07/22/19 07/22/19 Range/Units 15:44 15:44 15:44 WBC 11.7 H (3.8-10.6) k/uL RBC 5.34 (3.80-5.40) m/uL Hgb 15.3 (11.4-16.0) gm/dL Hct 44.8 (34.0-46.0) % MCV 83.8 (80.0-100.0) fL MCH 28.6 (25.0-35.0) pg MCHC 34.2 (31.0-37.0) g/dL RDW 13.1 (11.5-15.5) % Plt Count 272 (150-450) k/uL Neutrophils % 87 % Lymphocytes % 4 % Monocytes % 5 % Eosinophils % 1 % Basophils % 2 % Neutrophils # 10.1 H (1.3-7.7) k/uL Lymphocytes # 0.4 L (1.0-4.8) k/uL Monocytes # 0.6 (0-1.0) k/uL Eosinophils # 0.1 (0-0.7) k/uL Basophils # 0.3 H (0-0.2) k/uL Sodium 138 (137-145) mmol/L Potassium 4.1 (3.5-5.1) mmol/L Chloride 101 (98-107) mmol/L Carbon Dioxide 25 (22-30) mmol/L Anion Gap 12 mmol/L BUN 10 (7-17) mg/dL Creatinine 0.79 (0.52-1.04) mg/dL Est GFR (CKD-EPI)AfAm >90 (>60 ml/min/1.73 sqM) Est GFR (CKD-EPI)NonAf 79 (>60 ml/min/1.73 sqM) Glucose 113 H (74-99) mg/dL POC Glucose (mg/dL) (75-99) mg/dL POC Glu Adhesion Tester ID Plasma Lactic Acid Antoine 1.5 (0.7-2.0) mmol/L Calcium 9.9 (8.4-10.2) mg/dL Total Bilirubin 1.2 (0.2-1.3) mg/dL AST 53 H (14-36) U/L ALT 53 H (9-52) U/L Alkaline Phosphatase 105 (38-126) U/L Troponin I (0.000-0.034) ng/mL Total Protein 8.2 (6.3-8.2) g/dL Albumin 4.5 (3.5-5.0) g/dL Amylase 54 (30-110) U/L Lipase 54 (23-300) U/L Urine Color Urine Appearance (Clear) Urine pH (5.0-8.0) Ur Specific [place] (1.001-1.035) Urine Protein (Negative) Urine Glucose (UA) (Negative) Urine Ketones (Negative) Urine Blood (Negative) Urine Nitrite (Negative) Urine Bilirubin (Negative) Urine Urobilinogen (<2.0) mg/dL Ur Leukocyte Esterase (Negative) Urine RBC (0-5) /hpf Urine WBC (0-5) /hpf Ur Squamous Epith Cells (0-4) /hpf Urine Mucus (None) /hpf 07/22/19 07/22/19 07/22/19 Range/Units 15:44 17:31 20:40 WBC (3.8-10.6) k/uL RBC (3.80-5.40) m/uL Hgb (11.4-16.0) gm/dL Hct (34.0-46.0) % MCV (80.0-100.0) fL MCH (25.0-35.0) pg MCHC (31.0-37.0) g/dL RDW (11.5-15.5) % Plt Count (150-450) k/uL Neutrophils % % Lymphocytes % % Monocytes % % Eosinophils % % Basophils % % Neutrophils # (1.3-7.7) k/uL Lymphocytes # (1.0-4.8) k/uL Monocytes # (0-1.0) k/uL Eosinophils # (0-0.7) k/uL Basophils # (0-0.2) k/uL Sodium (137-145) mmol/L Potassium (3.5-5.1) mmol/L Chloride (98-107) mmol/L Carbon Dioxide (22-30) mmol/L Anion Gap mmol/L BUN (7-17) mg/dL Creatinine (0.52-1.04) mg/dL Est GFR (CKD-EPI)AfAm (>60 ml/min/1.73 sqM) Est GFR (CKD-EPI)NonAf (>60 ml/min/1.73 sqM) Glucose (74-99) mg/dL POC Glucose (mg/dL) 98 (75-99) mg/dL POC Glu Adhesion Tester ID Nicole Samuels Plasma Lactic Acid Antoine (0.7-2.0) mmol/L Calcium (8.4-10.2) mg/dL Total Bilirubin (0.2-1.3) mg/dL AST (14-36) U/L ALT (9-52) U/L Alkaline Phosphatase (38-126) U/L Troponin I <0.012 (0.000-0.034) ng/mL Total Protein (6.3-8.2) g/dL Albumin (3.5-5.0) g/dL Amylase (30-110) U/L Lipase (23-300) U/L Urine Color Yellow Urine Appearance Clear (Clear) Urine pH 6.5 (5.0-8.0) Ur Specific [place] 1.036 H (1.001-1.035) Urine Protein 1+ H (Negative) Urine Glucose (UA) Negative (Negative) Urine Ketones 1+ H (Negative) Urine Blood Moderate H (Negative) Urine Nitrite Negative (Negative) Urine Bilirubin Negative (Negative) Urine Urobilinogen <2.0 (<2.0) mg/dL Ur Leukocyte Esterase Trace H (Negative) Urine RBC 32 H (0-5) /hpf Urine WBC 10 H (0-5) /hpf Ur Squamous Epith Cells <1 (0-4) /hpf Urine Mucus Rare H (None) /hpf 07/23/19 07/23/19 07/23/19 Range/Units 05:47 05:47 06:10 WBC 8.4 (3.8-10.6) k/uL RBC 4.29 (3.80-5.40) m/uL Hgb 12.6 (11.4-16.0) gm/dL Hct 36.4 (34.0-46.0) % MCV 84.8 (80.0-100.0) fL MCH 29.3 (25.0-35.0) pg MCHC 34.6 (31.0-37.0) g/dL RDW 13.2 (11.5-15.5) % Plt Count 246 (150-450) k/uL Neutrophils % 91 % Lymphocytes % 5 % Monocytes % 2 % Eosinophils % 0 % Basophils % 0 % Neutrophils # 7.6 (1.3-7.7) k/uL Lymphocytes # 0.4 L (1.0-4.8) k/uL Monocytes # 0.2 (0-1.0) k/uL Eosinophils # 0.0 (0-0.7) k/uL Basophils # 0.0 (0-0.2) k/uL Sodium 142 (137-145) mmol/L Potassium 3.2 L (3.5-5.1) mmol/L Chloride 108 H (98-107) mmol/L Carbon Dioxide 23 (22-30) mmol/L Anion Gap 11 mmol/L BUN 10 (7-17) mg/dL Creatinine 0.65 (0.52-1.04) mg/dL Est GFR (CKD-EPI)AfAm >90 (>60 ml/min/1.73 sqM) Est GFR (CKD-EPI)NonAf >90 (>60 ml/min/1.73 sqM) Glucose 147 H (74-99) mg/dL POC Glucose (mg/dL) 133 H (75-99) mg/dL POC Glu Adhesion Tester ID Nicole Samuels Plasma Lactic Acid Antoine (0.7-2.0) mmol/L Calcium 8.4 (8.4-10.2) mg/dL Total Bilirubin (0.2-1.3) mg/dL AST (14-36) U/L ALT (9-52) U/L Alkaline Phosphatase (38-126) U/L Troponin I (0.000-0.034) ng/mL Total Protein (6.3-8.2) g/dL Albumin (3.5-5.0) g/dL Amylase (30-110) U/L Lipase (23-300) U/L Urine Color Urine Appearance (Clear) Urine pH (5.0-8.0) Ur Specific [place] (1.001-1.035) Urine Protein (Negative) Urine Glucose (UA) (Negative) Urine Ketones (Negative) Urine Blood (Negative) Urine Nitrite (Negative) Urine Bilirubin (Negative) Urine Urobilinogen (<2.0) mg/dL Ur Leukocyte Esterase (Negative) Urine RBC (0-5) /hpf Urine WBC (0-5) /hpf Ur Squamous Epith Cells (0-4) /hpf Urine Mucus (None) /hpf 07/24/19 07/24/19 07/24/19 Range/Units 06:14 06:14 06:14 WBC 9.1 (3.8-10.6) k/uL RBC 3.95 (3.80-5.40) m/uL Hgb 11.4 (11.4-16.0) gm/dL Hct 34.3 (34.0-46.0) % MCV 86.7 (80.0-100.0) fL MCH 28.9 (25.0-35.0) pg MCHC 33.3 (31.0-37.0) g/dL RDW 13.5 (11.5-15.5) % Plt Count 235 (150-450) k/uL Neutrophils % 77 % Lymphocytes % 12 % Monocytes % 6 % Eosinophils % 1 % Basophils % 0 % Neutrophils # 7.0 (1.3-7.7) k/uL Lymphocytes # 1.1 (1.0-4.8) k/uL Monocytes # 0.6 (0-1.0) k/uL Eosinophils # 0.1 (0-0.7) k/uL Basophils # 0.0 (0-0.2) k/uL Sodium 142 (137-145) mmol/L Potassium 3.3 L (3.5-5.1) mmol/L Chloride 110 H (98-107) mmol/L Carbon Dioxide 24 (22-30) mmol/L Anion Gap 8 mmol/L BUN 7 (7-17) mg/dL Creatinine 0.65 (0.52-1.04) mg/dL Est GFR (CKD-EPI)AfAm >90 (>60 ml/min/1.73 sqM) Est GFR (CKD-EPI)NonAf >90 (>60 ml/min/1.73 sqM) Glucose 94 (74-99) mg/dL POC Glucose (mg/dL) (75-99) mg/dL POC Glu Adhesion Tester ID Plasma Lactic Acid Antoine 1.6 (0.7-2.0) mmol/L Calcium 8.3 L (8.4-10.2) mg/dL Total Bilirubin (0.2-1.3) mg/dL AST (14-36) U/L ALT (9-52) U/L Alkaline Phosphatase (38-126) U/L Troponin I (0.000-0.034) ng/mL Total Protein (6.3-8.2) g/dL Albumin (3.5-5.0) g/dL Amylase (30-110) U/L Lipase (23-300) U/L Urine Color Urine Appearance (Clear) Urine pH (5.0-8.0) Ur Specific [place] (1.001-1.035) Urine Protein (Negative) Urine Glucose (UA) (Negative) Urine Ketones (Negative) Urine Blood (Negative) Urine Nitrite (Negative) Urine Bilirubin (Negative) Urine Urobilinogen (<2.0) mg/dL Ur Leukocyte Esterase (Negative) Urine RBC (0-5) /hpf Urine WBC (0-5) /hpf Ur Squamous Epith Cells (0-4) /hpf Urine Mucus (None) /hpf - EKG Data EKG Comments: EKG performed at 15:53 sinus tachycardia rate of 124 HI 126 QRS 72 QT/QTC 310/445 (Akbar Parra) Disposition <Akbar Parra - Last Filed: 07/22/19 16:36> Is patient prescribed a controlled substance at d/c from ED?: No Decision to Admit Reason: Admit from EC Decision Date: 07/22/19 Decision Time: 18:35 <Chula Guerrero - Last Filed: 07/25/19 01:35> Clinical Impression: Abdominal pain, CAP (community acquired pneumonia), Tachycardia, SIRS (systemic inflammatory response syndrome), Pyrexia Disposition: ADMITTED IP TO THIS HOSP Condition: Serious
[2019-07-22 16:16] LABS: Basophils # (A) 0.3 k/uL (0-0.2); Basophils % (A) 2 %; Eosinophils # (A) 0.1 k/uL (0-0.7); Eosinophils % (A) 1 %; HCT 44.8 % (34.0-46.0); HGB 15.3 gm/dL (11.4-16.0); Lymphocytes # (A) 0.4 k/uL (1.0-4.8); Lymphocytes % (A) 4 %; MCH 28.6 pg (25.0-35.0); MCHC 34.2 g/dL (31.0-37.0); MCV 83.8 fL (80.0-100.0); Monocytes # (A) 0.6 k/uL (0-1.0); Monocytes % (A) 5 %; Neutrophils # (A) 10.1 k/uL (1.3-7.7); Neutrophils % (A) 87 %; Platelet Count 272 k/uL (150-450); RBC 5.34 m/uL (3.80-5.40); RDW 13.1 % (11.5-15.5); WBC 11.7 k/uL (3.8-10.6)
[2019-07-22 16:25] LABS: ALT 53 U/L (9-52); AST 53 U/L (14-36); African American GFR (CKD) >90 (>60 ml/min/1.73 sqM); Albumin 4.5 g/dL (3.5-5.0); Alkaline Phosphatase 105 U/L (38-126); Amylase 54 U/L (30-110); Anion Gap 12 mmol/L; Blood Urea Nitrogen 10 mg/dL (7-17); Calcium 9.9 mg/dL (8.4-10.2); Carbon Dioxide 25 mmol/L (22-30); Chloride 101 mmol/L (98-107); Glucose 113 mg/dL (74-99); Non-African American GFR(CKD) 79 (>60 ml/min/1.73 sqM); Potassium 4.1 mmol/L (3.5-5.1); Sodium 138 mmol/L (137-145); Total Bilirubin 1.2 mg/dL (0.2-1.3); Total Protein 8.2 g/dL (6.3-8.2)
[2019-07-22] MEDS ORDERED: ACETAMINOPHEN TAB 500 MG TAB PO STA (16:32)
--- NOTE | 2019-07-22 17:27 | CT ---
EXAMINATION TYPE: CT abdomen pelvis w con DATE OF EXAM: 07/22/2019 COMPARISON: 05/08/2014 HISTORY: abdominal pain and vomiting CT DLP: 797.9 mGycm Automated exposure control for dose reduction was used. TECHNIQUE: Helical acquisition of images was performed from the lung bases through the pelvis. CONTRAST: Performed without Oral Contrast and with IV Contrast, patient injected with 100 mL of Isovue 300. FINDINGS: There is some 7 x 5 cm area of airspace consolidation left lower lobe. There is no pleural effusion. Heart size is normal. There is small hiatal hernia. Liver spleen pancreas gallbladder appear normal. Bile ducts are not dilated. There is no adrenal mass. Kidneys show satisfactory contrast opacification. There is no hydronephrosi s. There is 1.5 cm cortical cyst anterior right kidney. Ureters are not dilated. There is no retroper itoneal adenopathy. Bladder distends smoothly. There is sigmoid diverticulosis. I see no sign of dive rticulitis. There is no inguinal hernia. There is no free fluid in the pelvis. There is hysterectomy. Appendix is not definitely seen. There is no sign of thickened appendix. There is no mesenteric edema. There is no ascites or free air. There is no sign of a bowel obstructio n. Lumbar spine is intact. Bony pelvis appears intact. IMPRESSION: THERE IS LEFT LOWER LOBE AIRSPACE CONSOLIDATION CONSISTENT WITH PNEUMONIA. NO ACUTE ABNORMALITY WITHIN THE ABDOMEN PELVIS. SIGMOID DIVERTICULOSIS. PNEUMONIA IS NEW COMPARED TO OLD EXAM. DIVERTICULOSIS UNCHANGED.
[2019-07-22 17:56] LABS: Appearance,Urine Clear (Clear); Bilirubin,Urine Negative (Negative); Blood,Urine Moderate (Negative); Color,Urine Yellow; Glucose,Urine (UA) Negative (Negative); Ketones,Urine 1+ (Negative); Leukocyte Esterase,Urine Trace (Negative); Mucus,Urine Rare /hpf; Nitrite,Urine Negative (Negative); PH, Urine 6.5 (5.0-8.0); Protein,Urine 1+ (Negative); RBC,Urine 32 /hpf (0-5); Specific Gravity,Urine 1.036 (1.001-1.035); Squamous Epithelial Cell,Urine <1 /hpf (0-4); Urobilinogen,Urine <2.0 mg/dL (<2.0)
[2019-07-22] MEDS ORDERED: cefTRIAXone IN SWFI 1,000 MG/10 ML SYRINGE IVP STA (17:59)
[2019-07-22] MEDS ORDERED: AZITHROMYCIN 500 MG in SODIUM CHLORIDE 0.9% 250 ML IVPB STA (17:59)
[2019-07-22] MEDS ORDERED: IBUPROFEN 600 MG TAB PO STA (18:20)
[2019-07-22] MEDS ORDERED: ACETAMINOPHEN TAB 325 MG TAB PO PRN (18:35)
[2019-07-22] MEDS ORDERED: NALOXONE 0.4 MG/ML 1 ML VIAL IV PRN (18:35)
[2019-07-22] MEDS ORDERED: SODIUM CHLORIDE 0.9% 500 ML 500 ML IV ONE (18:38)
[2019-07-22] MEDS: SODIUM CHLORIDE 0.9% 1,000 ML IV SCH (19:34)
[2019-07-22] MEDS ORDERED: CYCLOBENZAPRINE 5 MG TAB PO PRN (20:22)
[2019-07-22] MEDS ORDERED: MONTELUKAST 10 MG TAB PO PRN (20:22)
[2019-07-22] MEDS ORDERED: HYDROcodone/APAP 7.5-325MG 1 EACH TAB PO PRN (20:22)
[2019-07-22 20:41] LABS: Glucose,Whole Blood 98 mg/dL (75-99)
[2019-07-22] MEDS: INSULIN ASPART (NovoLOG) 100 UNIT/ML VIAL SQ SCH (21:29)
[2019-07-22] MEDS: methylPREDNISolone SOD SUCCI 40 MG/ML 1 ML VIAL IV SCH (22:52)
[2019-07-22] MEDS: IPRATROPIUM-ALBUTEROL 3 ML NEB INHALATION SCH (23:31)
[2019-07-23] MEDS: IPRATROPIUM-ALBUTEROL 3 ML NEB INHALATION SCH ×5 (03:53→20:20)
[2019-07-23] MEDS: SODIUM CHLORIDE 0.9% 1,000 ML IV SCH ×2 (06:04→17:30)
[2019-07-23 06:07] LABS: Basophils % (A) 0 %; Eosinophils % (A) 0 %; HCT 36.4 % (34.0-46.0); HGB 12.6 gm/dL (11.4-16.0); Lymphocytes # (A) 0.4 k/uL (1.0-4.8); Lymphocytes % (A) 5 %; MCH 29.3 pg (25.0-35.0); MCHC 34.6 g/dL (31.0-37.0); MCV 84.8 fL (80.0-100.0); Mean Platelet Volume 6.2; Monocytes # (A) 0.2 k/uL (0-1.0); Monocytes % (A) 2 %; Neutrophils # (A) 7.6 k/uL (1.3-7.7); Neutrophils % (A) 91 %; Platelet Count 246 k/uL (150-450); RBC 4.29 m/uL (3.80-5.40); RDW 13.2 % (11.5-15.5); WBC 8.4 k/uL (3.8-10.6)
[2019-07-23] MEDS: INSULIN ASPART (NovoLOG) 100 UNIT/ML VIAL SQ SCH (06:10)
[2019-07-23 06:11] LABS: Glucose,Whole Blood 133 mg/dL (75-99)
[2019-07-23 06:44] LABS: African American GFR (CKD) >90 (>60 ml/min/1.73 sqM); Anion Gap 11 mmol/L; Blood Urea Nitrogen 10 mg/dL (7-17); Calcium 8.4 mg/dL (8.4-10.2); Carbon Dioxide 23 mmol/L (22-30); Chloride 108 mmol/L (98-107); Glucose 147 mg/dL (74-99); Non-African American GFR(CKD) >90 (>60 ml/min/1.73 sqM); Potassium 3.2 mmol/L (3.5-5.1); Sodium 142 mmol/L (137-145)
[2019-07-23] MEDS: methylPREDNISolone SOD SUCCI 40 MG/ML 1 ML VIAL IV SCH (11:07)
--- NOTE | 2019-07-23 12:18 | HP ---
HISTORY AND PHYSICAL CHIEF COMPLAINT: A 58-year-old white female with abdominal pain left lower quadrant after he ate some pork chops. She was recently treated for C diff. We finished oral vancomycin. Her stool studies have been normal. She had no history of diverticulitis. She came with fever, chills, high fever 102. She was found on CT scan to have severe left lower lobe pneumonia. At which time, IV antibiotics have been started. HOME MEDICATIONS: See list. ALLERGIES: Negative. REVIEW OF SYSTEMS: Fourteen-point review of systems negative except for mentioned in HPI. PAST MEDICAL HISTORY: Asthma, COPD, history of C diff. PAST SURGICAL HISTORY: Surgeries include back surgery, hysterectomy, colonoscopy. SOCIAL HISTORY: Former smoker. No alcohol. No drugs. FAMILY HISTORY: Brother with cancer of the lung, stomach cancer. PHYSICAL EXAM: T-max 103.2, his pulse rate 130s, heart rate 16 to 18, blood pressure is 140s over 70s to 100, O2 95 to 96% on 2 L. Cardiovascular S1, S2. LUNGS: Scattered wheeze and rhonchi left lower lobe. Abdomen: No guarding but mild tenderness to palpation in left lower quadrant. Normal bowel sounds. No mass. No guarding. No rebound tenderness. EXTREMITIES: No cyanosis, clubbing, edema. SKIN: No rash, excoriations, bruising. OPHTHALMOLOGIC: Pupils equal, round, reactive to light and accommodation. HEAD: Normocephalic, atraumatic. LABORATORY DATA: White count 10.7, hemoglobin 15.3. UA shows moderate blood, trace esterase, 32 red blood cells, 10 white blood cells, CT scan of abdomen and pelvis, left lower lobe pneumonia with fever. Start empiric antibiotics. Check for C diff. Left lower quadrant pain possibly secondary to pneumonia or referred pain versus colitis versus C diff versus obstipation versus urinary tract infection versus ureteral stone. EKG shows sinus rhythm. ASSESSMENT: 1. Community-acquired pneumonia. 2. Abdominal pain. 3. Tachycardia. 4. Systemic inflammatory response syndrome. Admit. IV antibiotics, updraft treatments, steroids, rule out C diff. MMODL / IJN: [id number] /
[2019-07-23] MEDS: AZITHROMYCIN 500 MG in SODIUM CHLORIDE 0.9% 250 ML IVPB SCH (17:30)
[2019-07-23] MEDS: FAMOTIDINE 20 MG/2 ML VIAL IV SCH (20:14)
[2019-07-23] MEDS: HEPARIN SODIUM,PORCINE 5,000 UNIT/ML 1 ML VIAL SQ SCH (20:14)
--- NOTE | 2019-07-23 21:21 | CONS ---
CONSULTATION Ana Sorto is a 68-year-old female who presented to the ED with abdominal pain in the right upper quadrant. She had some nausea and emesis. She recently had a history of C difficile colitis. She had a CT of the abdomen done which showed evidence of an infiltrate in the left lower lobe. She had a fever that was high at 102, along with chills. She subsequently was admitted for further evaluation, and management. PAST MEDICAL HISTORY: Past medical history is positive for C difficile colitis. No clear history of asthma or COPD in the past. History of lower extremity edema. SOCIAL HISTORY: The patient is a former smoker. FAMILY HISTORY: Family history is positive for lung cancer and stomach cancer in 2 of her brothers. MEDICATIONS: Prior to admission were montelukast, hydrocodone with acetaminophen, Flexeril, and Tylenol. PHYSICAL EXAMINATION: Her respiratory rate is 18, pulse rate of 105, temperature 98, blood pressure 102/66. When she came to the ED, her temperature was 103.2 with a pulse rate of 139. HEENT is unremarkable. Chest reveals decreased breath sounds in the bases. Some bronchovesicular breath sounds in the left base. Occasional rhonchi. Cardiovascular system is S1, S2. Abdomen is soft. There is trace edema. LABORATORY DATA: White count is 11.7, hemoglobin 15.3, BUN 10, creatinine 0.79, sodium 138, potassium 4.1, chloride 101, bicarb 25. IMPRESSION: At this time is: 1. Left lower lobe pneumonia. 2. Abdominal pain, etiology which is unclear. 3. Sepsis with systemic inflammatory response. At this point in time, keep her on IV antibiotics, discontinue her steroids. Continue azithromycin and Rocephin. Keep her on GI and DVT prophylaxis along with bronchodilators. Depending on how she does we should make further changes to her care. MMODL / IJN: [id number] /
[2019-07-23] MEDS: ACETAMINOPHEN TAB 500 MG TAB PO PRN (21:25)
[2019-07-24] MEDS: IPRATROPIUM-ALBUTEROL 3 ML NEB INHALATION SCH ×7 (00:47→23:57)
[2019-07-24] MEDS: SODIUM CHLORIDE 0.9% 1,000 ML IV SCH ×3 (05:39→20:24)
[2019-07-24 06:29] LABS: Basophils % (A) 0 %; Eosinophils # (A) 0.1 k/uL (0-0.7); Eosinophils % (A) 1 %; HCT 34.3 % (34.0-46.0); HGB 11.4 gm/dL (11.4-16.0); Lymphocytes # (A) 1.1 k/uL (1.0-4.8); Lymphocytes % (A) 12 %; MCH 28.9 pg (25.0-35.0); MCHC 33.3 g/dL (31.0-37.0); MCV 86.7 fL (80.0-100.0); Mean Platelet Volume 6.3; Monocytes # (A) 0.6 k/uL (0-1.0); Monocytes % (A) 6 %; Neutrophils % (A) 77 %; Platelet Count 235 k/uL (150-450); RBC 3.95 m/uL (3.80-5.40); RDW 13.5 % (11.5-15.5); WBC 9.1 k/uL (3.8-10.6)
[2019-07-24 06:51] LABS: African American GFR (CKD) >90 (>60 ml/min/1.73 sqM); Anion Gap 8 mmol/L; Blood Urea Nitrogen 7 mg/dL (7-17); Calcium 8.3 mg/dL (8.4-10.2); Carbon Dioxide 24 mmol/L (22-30); Chloride 110 mmol/L (98-107); Glucose 94 mg/dL (74-99); Non-African American GFR(CKD) >90 (>60 ml/min/1.73 sqM); Potassium 3.3 mmol/L (3.5-5.1); Sodium 142 mmol/L (137-145)
--- NOTE | 2019-07-24 07:38 | PN ---
PROGRESS NOTE Patient came in with acute febrile infection with community-acquired pneumonia, started on IV Zosyn, Rocephin and azithromycin. She is breathing better, she has broke her fever. She is complaining of some diarrhea, possible colitis, wants us to check her for C diff colitis. Continue with broad-spectrum antibiotics for breathing. CARDIOVASCULAR: S1, S2. LUNGS: Scattered rhonchi and wheeze. GI: Increased bowel sounds. ASSESSMENT: 1. Left lower quadrant pneumonia. 2. Colitis. 3. Chronic obstructive pulmonary disease exacerbation. Please see further orders. Possible discharge home in the next 48 hours. MMODL / IJN: [id number] /
[2019-07-24] MEDS ORDERED: Potassium Replacement Protocol 1 EACH MISC MISCELLANE PRN ×3 (08:39→13:08)
[2019-07-24] MEDS: FAMOTIDINE 20 MG/2 ML VIAL IV SCH ×2 (09:56→20:23)
[2019-07-24] MEDS: ACETAMINOPHEN TAB 500 MG TAB PO PRN (09:56)
[2019-07-24] MEDS: ONDANSETRON 4 MG/2 ML VIAL IVP PRN (09:57)
[2019-07-24] MEDS: HEPARIN SODIUM,PORCINE 5,000 UNIT/ML 1 ML VIAL SQ SCH ×2 (09:57→20:23)
--- NOTE | 2019-07-24 14:44 | P.PN ---
Subjective Progress Note Date: 07/24/19 This is a 68-year-old female admitted with left lower lobe pneumonia, colitis, COPD exacerbation. Maintained on Zosyn, Rocephin and Zithromax. Continues on IV fluid hydration. T-max 100.1, normal WBC, tachycardic. Blood cultures pending. Diet intake fair. Positive nausea, dry heaving this morning. Krystal rrhea persists, ruling out C. difficile colitis. Repeat lactic acid level I.6. Objective - Vital Signs Vital signs: Vital Signs Temp 99.0 F 07/24/19 04:00 Pulse 112 H 07/24/19 08:11 Resp 18 07/24/19 04:00 BP 136/87 07/24/19 04:00 Pulse Ox 96 07/24/19 04:00 Intake & Output 07/23/19 07/24/19 07/24/19 18:59 06:59 18:59 Intake Total 1460 800 Balance 1460 800 Weight 74.6 kg Intake: IV 800 0.9 800 Intake, IV Titration 800 Amount cefTRIAXone 1 gm In 800 Sodium Chloride 0.9% 50 ml @ 100 mls/hr IVPB Q12H [facility] Rx#:[id number] Oral 660 Other: Voiding Method Toilet Toilet # Voids 1 1 # Bowel Movements 0 - Exam PHYSICAL EXAM: VITAL SIGNS: As above GENERAL: Sitting up in bed, no acute distress HEENT: Conjunctivae normal. eyes normal. NECK: No JVD. No thyroid enlargement. No LNs CARDIOVASCULAR: S1, S2 regular.. No murmur RESPIRATION: Breath sounds diminished in the bases. Scattered, occasional rhonchi, left basilar crackles ABDOMEN: Soft, nondistended, diffuse suprapubic to left lower quadrant tenderness. No guarding. no masses palpable. Bowel sounds heard. LEGS: trace edema. no swelling PSYCHIATRY: Alert and oriented X3, mood and affect normal. NERVOUS SYSTEM: Cranial N 2-12 grossly normal. Moves all 4 limbs. Diffuse weakness No focal deficits. Strength and sensation grossly intact.. Skin: no lesions, no rash - Labs CBC & Chem 7: 07/24/19 06:14 07/24/19 06:14 Labs: Abnormal Lab Results - Last 24 Hours (Table) 07/24/19 Range/Units 06:14 Potassium 3.3 L (3.5-5.1) mmol/L Chloride 110 H (98-107) mmol/L Calcium 8.3 L (8.4-10.2) mg/dL Microbiology - Last 24 Hours (Table) 07/22/19 15:44 Blood Culture - Preliminary Blood No Growth after 24 hours Assessment and Plan Assessment: Sepsis secondary to Left lower lobe pneumonia Colitis COPD exacerbation Hypokalemia Plan: Continue current medication regime ,monitoring and symptomatic treatment. Maintain on nebulized dilators, IV antibiotics. Cultures pending. Following closely with pulmonary. Continue on IV fluid hydration. C. difficile being ruled out. Potassium supplement protocol ordered. Increase ambulation as tolerated. The impression and plan of care has been dictated as directed. : I performed a history and examination of this patient, discussed the same with the dictator. I agree with the dictator's note ,documented as a scribe. Any additional findings or plans will be noted.
[2019-07-24] MEDS: POTASSIUM CHLORIDE ER 20 MEQ TAB.ER PO SCH ×2 (16:21→17:54)
[2019-07-24] MEDS: AZITHROMYCIN 500 MG in SODIUM CHLORIDE 0.9% 250 ML IVPB SCH (19:47)
[2019-07-24] MEDS ORDERED: POTASSIUM CHLORIDE ER 20 MEQ TAB.ER PO STA (23:06)
[2019-07-25] MEDS: ACETAMINOPHEN TAB 500 MG TAB PO PRN (00:37)
[2019-07-25] MEDS: IBUPROFEN 400 MG TAB PO PRN ×2 (01:29→09:11)
[2019-07-25] MEDS: SODIUM CHLORIDE 0.9% 1,000 ML IV SCH ×3 (01:31→23:12)
[2019-07-25] MEDS: IPRATROPIUM-ALBUTEROL 3 ML NEB INHALATION SCH ×6 (03:40→23:45)
[2019-07-25 07:02] LABS: African American GFR (CKD) >90 (>60 ml/min/1.73 sqM); Anion Gap 6 mmol/L; Blood Urea Nitrogen 5 mg/dL (7-17); Calcium 8.3 mg/dL (8.4-10.2); Carbon Dioxide 25 mmol/L (22-30); Chloride 110 mmol/L (98-107); Glucose 93 mg/dL (74-99); Non-African American GFR(CKD) >90 (>60 ml/min/1.73 sqM); Potassium 3.6 mmol/L (3.5-5.1); Sodium 141 mmol/L (137-145)
[2019-07-25 07:11] LABS: Basophils # (A) 0.2 k/uL (0-0.2); Basophils % (A) 3 %; Eosinophils # (A) 0.2 k/uL (0-0.7); Eosinophils % (A) 2 %; HCT 34.9 % (34.0-46.0); HGB 11.1 gm/dL (11.4-16.0); Lymphocytes # (A) 1.6 k/uL (1.0-4.8); Lymphocytes % (A) 18 %; MCH 27.6 pg (25.0-35.0); MCV 86.3 fL (80.0-100.0); Monocytes # (A) 0.5 k/uL (0-1.0); Monocytes % (A) 6 %; Neutrophils # (A) 6.1 k/uL (1.3-7.7); Neutrophils % (A) 68 %; Platelet Count 249 k/uL (150-450); RBC 4.04 m/uL (3.80-5.40); RDW 13.5 % (11.5-15.5)
[2019-07-25] MEDS: FAMOTIDINE 20 MG/2 ML VIAL IV SCH (09:08)
[2019-07-25] MEDS: HEPARIN SODIUM,PORCINE 5,000 UNIT/ML 1 ML VIAL SQ SCH ×2 (09:08→20:41)
--- NOTE | 2019-07-25 13:23 | PN ---
PROGRESS NOTE She was seen on 07/25/2019. She has a cough at this time and is bringing up some scant amount of phlegm. She does not feel well overall. PHYSICAL EXAMINATION: On physical examination, her temperature which was 103.2 on 07/22/2019 was 102.7 a little after midnight this morning. She is down to 98.8. Respiratory rate is 14, pulse rate 96, temperature 98.8, blood pressure 132/77, O2 saturation on room air is 94%. HEENT reveals pupils are equal. Chest reveals decreased breath sounds at the bases. Cardiovascular system reveals an S1, S2. Abdomen is soft. There is no edema. White count is 9, hemoglobin 11.1. Sodium 141, potassium 3.6, chloride 110, bicarb 25. IMPRESSION AT THIS TIME: Left lower zone pneumonia. Await final cultures. Continue azithromycin and Rocephin. Have her seen by ID as she continues to have fevers. Keep her on GI and DVT prophylaxis. Her prognosis at this time is fair. MMODL / IJN: [id number] /
[2019-07-25] MEDS: LEVOFLOXACIN 750 MG TAB PO SCH (15:45)
[2019-07-25] MEDS: BENZOCAINE/MENTHOL LOZENG 1 EACH LOZENGE MUCOUS MEM PRN ×2 (15:45→20:47)
--- NOTE | 2019-07-25 17:10 | P.PN ---
Subjective Progress Note Date: 07/25/19 This is a 68-year-old female admitted with left lower lobe pneumonia, colitis, COPD exacerbation. Maintained on Zosyn, Rocephin and Zithromax. Continues on IV fluid hydration. T-max 100.1, normal WBC, tachycardic. Blood cultures pending. Diet intake fair. Positive nausea, dry heaving this morning. Krystal rrhea persists, ruling out C. difficile colitis. Repeat lactic acid level I.6. 07/25/2019 maintained on Zithromax, Rocephin .fevers continue, T-max 102.7. Normal WBC. Tachycardia improving. Denies nausea vomiting or diarrhea. Diarrhea subsided, staff therefore unable to collect specimen ruling out C. difficile colitis. Denies cough, complains of headache. Reports headache started last night received some medication with minimal relief. Also complains of sore throat. Tested negative for Group A strep. Objective - Vital Signs Vital signs: Vital Signs Temp 98 F 07/25/19 15:00 Pulse 100 07/25/19 15:55 Resp 12 07/25/19 15:00 BP 144/68 07/25/19 15:00 Pulse Ox 95 07/25/19 15:00 Intake & Output 07/24/19 07/25/19 07/25/19 18:59 06:59 18:59 Intake Total 480 1100 800 Output Total 1200 Balance -720 1100 800 Weight 73.8 kg Intake: Intake, IV Titration 1100 800 Amount Azithromycin 500 mg In 250 Sodium Chloride 0.9% 250 ml @ 250 mls/hr IVPB Q24H [facility] Rx#:[id number] Sodium Chloride 0.9% 1, 800 800 000 ml @ 100 mls/hr IV . Q10H [facility] Rx#:[id number] cefTRIAXone 1 gm In 50 Sodium Chloride 0.9% 50 ml @ 100 mls/hr IVPB Q12H [facility] Rx#:[id number] Oral 480 Output: Urine 1200 Other: Voiding Method Toilet Toilet Toilet # Voids 2 1 2 - Exam PHYSICAL EXAM: VITAL SIGNS: As above GENERAL: Lying in bed, no acute distress, tired appearing. HEENT: Conjunctivae normal. eyes normal. NECK: No JVD. No thyroid enlargement. No LNs CARDIOVASCULAR: S1, S2 regular.. No murmur RESPIRATION: Breath sounds diminished in the bases. Fine left basilar crackles. ABDOMEN: Soft, nondistended, diffuse suprapubic to left lower quadrant tende rness. No guarding. no masses palpable. Bowel sounds heard. LEGS: trace edema. no swelling PSYCHIATRY: Alert and oriented X3, mood and affect normal. NERVOUS SYSTEM: Cranial N 2-12 grossly normal. Moves all 4 limbs. Diffuse weakness No focal deficits. Strength and sensation grossly intact.. Skin: no lesions, no rash - Labs CBC & Chem 7: 07/25/19 06:13 07/25/19 06:13 Labs: Abnormal Lab Results - Last 24 Hours (Table) 07/25/19 07/25/19 Range/Units 06:13 06:13 Hgb 11.1 L (11.4-16.0) gm/dL Chloride 110 H (98-107) mmol/L BUN 5 L (7-17) mg/dL Calcium 8.3 L (8.4-10.2) mg/dL Microbiology - Last 24 Hours (Table) 07/22/19 15:44 Blood Culture - Preliminary Blood No Growth after 48 hours Assessment and Plan Assessment: Sepsis secondary to Left lower lobe pneumonia Colitis COPD exacerbation Hypokalemia Plan: Continue current medication regime ,monitoring and symptomatic treatment. Infectious disease consulted -Antibiotics adjusted to Unasyn. Influenza A and B/ swabs ordered. Cultures pending. Maintain IV fluid hydration. Persistent headache, brain CT ordered. The impression and plan of care has been dictated as directed. : I performed a history and examination of this patient, discussed the same with the dictator. I agree with the dictator's note ,documented as a scribe. Any a dditional findings or plans will be noted.
--- NOTE | 2019-07-25 17:22 | CT ---
EXAMINATION: CT brain wo con DATE AND TIME: 07/25/2019 5:05 PM CLINICAL INDICATION: PHH; Persistent headaches TECHNIQUE: Standard departmental protocol.; 1142.4; headache without injury DLP: 1142.4 mGy-cm COMPARISON: None. FINDINGS: The calvarium is intact. There is no intracranial hemorrhage. There is no intracranial mass or mass effect. No definite new intra-axial or extra-axial attenuation defect. The paranasal sinuses, middle ear cavities, and mastoid sinus air cells are clear. The orbits are unremarkable. IMPRESSION: NO ACUTE PROCESS.
[2019-07-25] MEDS ORDERED: AZITHROMYCIN 500 MG TAB PO SCH (18:00)
[2019-07-25] MEDS: AMPICILLIN-SULBACTAM 3 GM in SODIUM CHLORIDE 0.9% 100 ML IVPB SCH ×2 (18:22→23:10)
[2019-07-25] MEDS: ONDANSETRON 4 MG/2 ML VIAL IVP PRN (20:37)
[2019-07-25] MEDS: FAMOTIDINE 20 MG TAB PO SCH (20:40)
--- NOTE | 2019-07-25 21:07 | US ---
EXAMINATION TYPE: US abdomen complete DATE OF EXAM: 07/25/2019 COMPARISON: CT, US Kidneys CLINICAL HISTORY: Fever and right upper quadrant tenderness. Fever, RUQ tenderness x 1 week. Vomiting . EXAM MEASUREMENTS: Liver Length: 14.7 cm Gallbladder Wall: 0.30 cm CBD: 0.49 cm Spleen: 9.0 cm Right Kidney: 10.7 x 5.2 x 4.9 cm Left Kidney: 11.3 x 4.7 x 5.7 cm *Limited due to gas. Pancreas: Limited visibility and evaluation due to overlying bowel gas. Liver: Increased attenuation. Appears to have increased echogenicity. Hypoechoic area seen adjacent to the gallbladder measurin.9 x 1.0 x 1.4 cm, possible focal fatty sparing. Gallbladder: Hyperechoic area seen with twinkle artifact, appears to be immobile measurin.5 x 0. 5 x 0.3 cm. Evidence for sonographic Grissom's sign: no CBD: appears wnl Spleen: appears wnl Right Kidney: Anechoic-hypoechoic area seen measurin.5 x 1.1 x 1.0 cm. Left Kidney: No hydronephrosis or masses seen Upper IVC: appears wnl Abd Aorta: Limited evaluation. Distal aorta obscured by overlying bowel gas. IMPRESSION: Negative for cholecystitis or other acute process.
--- NOTE | 2019-07-25 23:02 | P.CONS ---
History of Present Illness - Reason for Consult Consult date: 07/25/19 Fever Requesting physician: Amador Guzman - Chief Complaint Nausea , vomiting x 1 day - History of Present Illness Patient is a 68-year-old -[place] female who presented to the ER at [facility] on July 22, 2019 with chief complaints of nausea vomiting and diarrhea symptom has been going on for about a day or 2 before she presented hospital patient initially was started with one subsequent having diarrhea the patient did have some vague abdominal pain the patient also have some shortness of breath and a cough which has been mild to moderate intensity and to bring up with patient sputum no hemoptysis with the symptom had the patient was evaluated by the physician on arrival to the patient was febrile with a temperature of 102 F she was also tachycardic and did have elevated white count of 11.[address] of abdominal pelvis was done which did not show any intra-abdominal pathology however did show some left lower lobe pneumonia patient has been admitted to the hospital and has been treated with Rocephin and Zithromax however over the last 3 days the patient has been spiking fever on a daily basis that prompted this infectious disease consultation. Review of Systems Positive point has been mentioned in HPI rest of the systems are negative Past Medical History Past Medical History: Asthma, COPD Additional Past Medical History / Comment(s): back problems, EDEMA, cdiff History of Any Multi-Drug Resistant Organisms: C-DIFF Year Discovered:: may 2019 MDRO Source:: stool Past Surgical History: Back Surgery, Hysterectomy Additional Past Surgical History / Comment(s): COLONOSCOPY, lower extremety edema Past Anesthesia/Blood Transfusion Reactions: No Reported Reaction Past Psychological History: No Psychological Hx Reported Additional Psychological History / Comment(s): Pt resides alone. She is independent. Smoking Status: Former smoker Past Alcohol Use History: None Reported Additional Past Alcohol Use History / Comment(s): Pt smoked from [id number]. 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 Past Drug Use History: None Reported - Past Family History Brother(s) Family Medical History: Cancer Additional Family Medical History / Comment(s): One brother of lung cancer and another brother of stomach cancer. Sister(s) Family Medical History: Cancer Additional Family Medical History / Comment(s): Sister of "female" cancer. Medications and Allergies Home Medications Medication Instructions Recorded Confirmed Type Hydrocodone/Acetaminophen 1 tab PO TID PRN 05/08/14 07/22/19 History [Hydrocodone/Acetaminophen 7.5-325] Acetaminophen Tab [Tylenol Tab] 1,000 mg PO Q6H PRN 07/22/19 07/22/19 History Cyclobenzaprine [Flexeril] 5 mg PO TID PRN 07/22/19 07/22/19 History Montelukast [Singulair] 10 mg PO DAILY PRN 07/22/19 07/22/19 History Allergies Allergy/AdvReac Type Severity Reaction Status Date / Time No Known Allergies Allergy Verified 07/22/19 18:47 Physical Exam Vitals: Vital Signs Temp Pulse Pulse Resp BP Pulse Ox 07/25/19 11:55 97 07/25/19 11:43 96 07/25/19 08:22 103 H 07/25/19 08:10 98 07/25/19 07:41 98.8 F 96 14 133/77 94 L 07/25/19 02:49 99.2 F 07/25/19 01:33 117 H 07/25/19 01:30 99.7 F H 07/25/19 00:27 102.7 F H 130 H 15 155/77 92 L 07/25/19 00:05 118 H 07/24/19 23:59 118 H 07/24/19 23:31 16 07/24/19 21:08 98.6 F 121 H 15 158/83 97 07/24/19 20:05 98.5 F 128 H 17 163/81 95 07/24/19 19:36 104 H 07/24/19 19:27 100 07/24/19 16:00 99.5 F 113 H 16 131/83 97 07/24/19 15:34 108 H 07/24/19 15:24 104 H Intake and Output 07/24/19 07/25/19 07/25/19 22:59 06:59 14:59 Intake Total 1280 Output Total 800 Balance 480 Intake: Intake, IV Titration 1100 Amount Azithromycin 500 mg In 250 Sodium Chloride 0.9% 250 ml @ 250 mls/hr IVPB Q24H [facility] Rx#:[id number] Sodium Chloride 0.9% 1, 800 000 ml @ 100 mls/hr IV . Q10H [facility] Rx#:[id number] cefTRIAXone 1 gm In 50 Sodium Chloride 0.9% 50 ml @ 100 mls/hr IVPB Q12H [facility] Rx#:[id number] Oral 180 Output: Urine 800 Other: Voiding Method Toilet Toilet # Voids 1 2 GENERAL DESCRIPTION: Elderly female lying in bed, no distress. No tachypnea or accessory muscle of respiration use. HEENT: Shows Pallor , no scleral icterus. Oral mucous membrane is dry. NECK: Trachea central, no thyromegaly. LUNGS: Unlabored breathing. Decreased breath sound at the base. No wheeze or crackle. HEART: S1, S2, regular rate and rhythm. ABDOMEN: Soft, mild right upper quadrant tenderness ,no guarding or rigidity EXTREMITIES: No edema of feet. SKIN: No rash, no masses palpable. NEUROLOGICAL: The patient is awake, alert, oriented x3, mood and affect normal. Results CBC & Chem 7: 07/25/19 06:13 07/25/19 06:13 Labs: Abnormal Lab Results - Last 24 Hours (Table) 07/25/19 07/25/19 Range/Units 06:13 06:13 Hgb 11.1 L (11.4-16.0) gm/dL Chloride 110 H (98-107) mmol/L BUN 5 L (7-17) mg/dL Calcium 8.3 L (8.4-10.2) mg/dL Microbiology - Last 24 Hours (Table) 07/22/19 15:44 Blood Culture - Preliminary Blood No Growth after 48 hours Assessment and Plan Assessment: 1-patient admitted to the hospital with sepsis in this patient who did have a f ever tachycardia elevated white count with a predominantly abdominal symptom and slightly tenderness right upper quadrant and question of possible gallbladder disease with a CT did shows evidence of left lower lobe pneumonia question of pneumonia or aspiration etiology that may not have responded very well to the Rocephin and Zithromax however pneumonia and predominant GI symptoms underlying Legionella need to be rule out (1) Sepsis Current Visit: Yes Status: Acute Code(s): A41.9 - SEPSIS, UNSPECIFIED ORGANISM SNOMED Code(s): 95938681 (2) Pneumonia Current Visit: Yes Status: Acute Code(s): J18.9 - PNEUMONIA, UNSPECIFIED ORGANISM SNOMED Code(s): 515635188 Plan: 1-we will check a urine for Legionella antigen 2 discontinue Rocephin and Zithromax- 3-start the patient on Unasyn 3 g every 6 hours and Levaquin 750 daily 4-check ultrasound of the right upper quadrant area 5-obtain sputum for Gram stain and culture We will follow on clinical condition and cultures to further adjust medication if needed Thank you for this consultation we will follow the patient along with you Time with Patient: Greater than 30
[2019-07-26] MEDS: BENZOCAINE/MENTHOL LOZENG 1 EACH LOZENGE MUCOUS MEM PRN ×3 (01:16→23:32)
[2019-07-26] MEDS: IPRATROPIUM-ALBUTEROL 3 ML NEB INHALATION SCH ×5 (03:57→19:27)
[2019-07-26] MEDS: AMPICILLIN-SULBACTAM 3 GM in SODIUM CHLORIDE 0.9% 100 ML IVPB SCH ×4 (05:39→23:24)
[2019-07-26 07:25] LABS: Basophils # (A) 0.1 k/uL (0-0.2); Basophils % (A) 1 %; Eosinophils # (A) 0.3 k/uL (0-0.7); Eosinophils % (A) 3 %; HCT 34.2 % (34.0-46.0); HGB 11.4 gm/dL (11.4-16.0); Lymphocytes # (A) 1.4 k/uL (1.0-4.8); Lymphocytes % (A) 16 %; MCH 28.2 pg (25.0-35.0); MCHC 33.2 g/dL (31.0-37.0); Mean Platelet Volume 6.5; Monocytes # (A) 0.4 k/uL (0-1.0); Monocytes % (A) 5 %; Neutrophils # (A) 6.3 k/uL (1.3-7.7); Neutrophils % (A) 73 %; Platelet Count 276 k/uL (150-450); RBC 4.03 m/uL (3.80-5.40); RDW 13.6 % (11.5-15.5); WBC 8.7 k/uL (3.8-10.6)
[2019-07-26 07:29] LABS: African American GFR (CKD) >90 (>60 ml/min/1.73 sqM); Anion Gap 7 mmol/L; Blood Urea Nitrogen 4 mg/dL (7-17); Calcium 8.8 mg/dL (8.4-10.2); Carbon Dioxide 26 mmol/L (22-30); Chloride 106 mmol/L (98-107); Glucose 103 mg/dL (74-99); Non-African American GFR(CKD) >90 (>60 ml/min/1.73 sqM); Potassium 3.4 mmol/L (3.5-5.1); Sodium 139 mmol/L (137-145)
[2019-07-26] MEDS: FAMOTIDINE 20 MG TAB PO SCH ×2 (07:32→20:00)
[2019-07-26] MEDS: HEPARIN SODIUM,PORCINE 5,000 UNIT/ML 1 ML VIAL SQ SCH ×2 (07:32→20:00)
[2019-07-26] MEDS: POTASSIUM CHLORIDE ER 20 MEQ TAB.ER PO SCH ×2 (10:45→11:59)
[2019-07-26] MEDS ORDERED: Magnesium Replacement Protocol 1 EACH MISC MISCELLANE PRN (11:49)
[2019-07-26] MEDS: ACETAMINOPHEN TAB 500 MG TAB PO PRN (12:00)
[2019-07-26] MEDS: LEVOFLOXACIN 750 MG TAB PO SCH (14:41)
--- NOTE | 2019-07-26 14:57 | PN ---
PROGRESS NOTE DATE OF SERVICE: 07/26/2019 REASON FOR FOLLOWUP: Pneumonia with question of aspiration versus atypical. INTERVAL HISTORY: The patient is currently afebrile. The patient has been breathing comfortably. Patient did have a cough but not bringing up any sputum. No nausea, no vomiting. No abdominal pain and no diarrhea. PHYSICAL EXAMINATION: Blood pressure is 152/90 with pulse of 90, temperature 98.5, she is 93% on room air. General description is an elderly female, up in the room in no distress. RESPIRATORY SYSTEM: Unlabored breathing. Decreased breath sounds in the bases, no wheeze. HEART: S1, S2. Regular rate and rhythm. ABDOMEN: Soft, no tenderness. LABS: Hemoglobin is 11.4, white count 8.7. Influenza serology has been negative. Urine for Legionella antigen requested, not completed. DIAGNOSTIC IMPRESSION AND PLAN: Patient with fever with left lower lobe pneumonia with sputum and GI symptom with concern for possible aspiration pneumonia waiting for the urine for the culture to be finalized. Continue with Unasyn and Levaquin to which the patient's fever has responded. Continue supportive care. MMODL / IJN: [id number] /
--- NOTE | 2019-07-26 16:42 | PN ---
PROGRESS NOTE DATE OF SERVICE: 07/26/2019 This patient is feeling significantly better and has been afebrile. On physical examination, her respiratory rate is 16, pulse rate 112, temperature 98.5, blood pressure 152/91. Oxygen saturation on room air is 93%. HEENT reveals pupils that are equal. Chest is clear today. Cardiovascular system is in S1, S2. Abdomen is soft. There is no pedal edema. Blood cultures have been negative. IMPRESSION AT THIS TIME: Left lower lobe pneumonia. Continue bronchodilators and Levaquin. Increase her activity level. Her prognosis is fair. MMODL / IJN: [id number] /
--- NOTE | 2019-07-26 19:11 | P.PN ---
Subjective Progress Note Date: 07/26/19 This is a 68-year-old female admitted with left lower lobe pneumonia, colitis, COPD exacerbation. Maintained on Zosyn, Rocephin and Zithromax. Continues on IV fluid hydration. T-max 100.1, normal WBC, tachycardic. Blood cultures pending. Diet intake fair. Positive nausea, dry heaving this morning. Krystal rrhea persists, ruling out C. difficile colitis. Repeat lactic acid level I.6. 07/25/2019 maintained on Zithromax, Rocephin .fevers continue, T-max 102.7. Normal WBC. Tachycardia improving. Denies nausea vomiting or diarrhea. Diarrhea subsided, staff therefore unable to collect specimen ruling out C. difficile colitis. Denies cough, complains of headache. Reports headache started last night received some medication with minimal relief. Also complains of sore throat. Tested negative for Group A strep rapid. 07/26/2018 yesterday antibiotics adjusted to Unasyn and Levaquin, with signif icant clinical improvement. Headache subsided, brain CT nonacute.Afebrile, normal WBC. Occasional cough, productive with white phlegm. Headache subsided. Denies nausea vomiting or diarrhea. Mild sore throat. Rapid group A strep negative, strep culture pending Potassium 3.4. Influenza A and B ruled out. Abdominal ultrasound reported negative for cholecystitis or other acute process, liver appears to have increased echogenicity with hyperechoic area seen adjacent to the gallbladder measuring 1.9 x 1 x 1.4 cm possible fatty sparing, anechoic- hypoechoic narea on right kidney measuring 1.5 x 1.1 x 1 cm, no hydronephrosis, abdominal aorta Limited evaluation. Objective - Vital Signs Vital signs: Vital Signs Temp 98.5 F 07/26/19 17:53 Pulse 99 07/26/19 17:53 Resp 15 07/26/19 17:57 BP 129/87 07/26/19 17:53 Pulse Ox 94 L 07/26/19 17:53 Intake & Output 07/25/19 07/26/19 07/26/19 18:59 06:59 18:59 Intake Total 543 556 8803 Balance 355 224 8553 Intake: Intake, IV Titration 800 700 800 Amount Ampicillin-Sulbactam 3 gm 100 100 In Sodium Chloride 0.9% 100 ml @ 200 mls/hr IVPB Q6HR [facility] Rx#:[id number] Sodium Chloride 0.9% 1, 800 600 700 000 ml @ 100 mls/hr IV . Q10H [facility] Rx#:[id number] Oral 360 Other: Voiding Method Toilet Toilet Toilet # Voids 2 1 - Exam PHYSICAL EXAM: VITAL SIGNS: As above GENERAL: Sitting up in bed, no acute distress, HEENT: Conjunctivae normal. eyes normal. NECK: No JVD. No thyroid enlargement. No LNs CARDIOVASCULAR: S1, S2 regular.. No murmur RESPIRATION: Breath sounds diminished in the bases. No rhonchi, no wheezing ABDOMEN: Soft, nondistended, nontender, No guarding. no masses palpable. Bowel sounds heard. LEGS: no edema. no swelling PSYCHIATRY: Alert and oriented X3, mood and affect normal. NERVOUS SYSTEM: Cranial N 2-12 grossly normal. Moves all 4 limbs. Diffuse weakness No focal deficits. Strength and sensation grossly intact.. Skin: no lesions, no rash Microbiology 07/22/19 15:44 Blood Blood Culture - Preliminary No Growth after 96 hours 07/25/19 15:43 Throat Group A Strep Throat Culture - Preliminary - Labs CBC & Chem 7: 07/26/19 06:55 07/26/19 06:55 Labs: Abnormal Lab Results - Last 24 Hours (Table) 07/26/19 Range/Units 06:55 Potassium 3.4 L (3.5-5.1) mmol/L BUN 4 L (7-17) mg/dL Glucose 103 H (74-99) mg/dL Microbiology - Last 24 Hours (Table) 07/22/19 15:44 Blood Culture - Preliminary Blood No Growth after 96 hours 07/25/19 15:43 Group A Strep Throat Culture - Preliminary Throat Assessment and Plan Assessment: Sepsis secondary to Left lower lobe pneumonia, possible aspiration, given patient did not respond to Rocephin and Zithromax. Colitis Rule out Legionella COPD exacerbation Hypokalemia Incidental findings per Ultrasound :liver appears to have increased echogenicity with hyperechoic area seen adjacent to the gallbladder measuring 1.9 x 1 x 1.4 cm possible fatty sparing, anechoic-hypoechoic narea on right kidney measuring 1.5 x 1.1 x 1 cm, no hydronephrosis, abdominal aorta Limited evaluation. Plan: Continue current medication regime ,monitoring and symptomatic treatment. Maintain Antibiotics of Unasyn and Levaquin as per ID. continue on nebulized bronchodilators. Final strep throat culture pending . Urine for Legionella antigen pending increase activity as tolerated. Discharge planning in progress for tomorrow pending culture results, clearance and antibiotic DC recommendations from ID. The impression and plan of care has been dictated as directed. : I performed a history and examination of this patient, discussed the same with the dictator. I agree with the dictator's note ,documented as a scribe. Any additional findings or plans will be noted.
[2019-07-26] MEDS: SODIUM CHLORIDE 0.9% 1,000 ML IV SCH ×2 (21:29→23:24)
[2019-07-26] MEDS: ONDANSETRON 4 MG/2 ML VIAL IVP PRN (23:29)
[2019-07-27] MEDS: IPRATROPIUM-ALBUTEROL 3 ML NEB INHALATION SCH ×5 (00:02→15:35)
[2019-07-27 01:57] VITALS: RESP 16
[2019-07-27] MEDS: AMPICILLIN-SULBACTAM 3 GM in SODIUM CHLORIDE 0.9% 100 ML IVPB SCH ×2 (05:24→11:44)
[2019-07-27] MEDS: FAMOTIDINE 20 MG TAB PO SCH (08:34)
[2019-07-27] MEDS: HEPARIN SODIUM,PORCINE 5,000 UNIT/ML 1 ML VIAL SQ SCH (08:35)
--- NOTE | 2019-07-27 12:08 | PN ---
PROGRESS NOTE DATE OF SERVICE: 07/27/2019 REASON FOR FOLLOWUP: Pneumonia with question of possible aspiration. INTERVAL HISTORY: The patient is currently afebrile. The patient is breathing comfortably. Denies having any chest pain. She did have some cough but not bringing up any sputum. No nausea, no vomiting. No abdominal pain. No diarrhea. PHYSICAL EXAMINATION: Blood pressure 141/91 with a pulse of 95, temperature 97.9, he is 95% on room air. General description is an elderly female, lying in bed in no distress. RESPIRATORY SYSTEM: Unlabored breathing. Decreased breath sounds at the bases, no wheeze. HEART: S1, S2. Regular rate and rhythm. ABDOMEN: Soft, no tenderness. EXTREMITIES: No edema of the feet. LABS: Hemoglobin 11.4, white count 8.7, BUN 14, creatinine 0.59. DIAGNOSTIC IMPRESSION AND PLAN: Patient with fever, source is likely pneumonia. One other clinical focus has noticed, negative. She did well on Unasyn, finish therapy with oral b.i.d. for another 7-10 days with close outpatient followup. MMODL / IJN: [id number] /
--- NOTE | 2019-07-27 13:15 | P.PN ---
Subjective Progress Note Date: 07/27/19 Principal diagnosis: Sepsis secondary to Left lower lobe pneumonia, possible aspiration, given patient did not respond to Rocephin and Zithromax. Colitis Rule out Legionella COPD exacerbation Hypokalemia Incidental findings per Ultrasound :liver appears to have increased echogenicity with hyperechoic area seen adjacent to the gallbladder measuring 1.9 x 1 x 1.4 cm possible fatty sparing, anechoic-hypoechoic narea on right kidney measuring 1.5 x 1.1 x 1 cm, no hydronephrosis, abdominal aorta Limited evaluation. 07/27/2019, patient seen eval examined during the rounds labs reviewed medications reviewed cough congestion is improved as well patient has been changed to oral antibiotics will get continue on breathing treatments stable from pulmonary standpoint for discharge and follow-up in outpatient basis labs reviewed medications reviewed care plan discussed Objective - Vital Signs Vital signs: Vital Signs Temp 97.9 F 07/27/19 07:07 Pulse 95 07/27/19 08:00 Resp 16 07/27/19 08:00 BP 141/91 07/27/19 07:07 Pulse Ox 95 07/27/19 07:07 Intake & Output 07/26/19 07/27/19 07/27/19 18:59 06:59 18:59 Intake Total 1160 880 180 Balance 1160 880 180 Intake: Intake, IV Titration 800 700 Amount Ampicillin-Sulbactam 3 gm 100 100 In Sodium Chloride 0.9% 100 ml @ 200 mls/hr IVPB Q6HR JEANINE Rx#:[id number] Sodium Chloride 0.9% 1, 700 600 000 ml @ 100 mls/hr IV . Q10H JEANINE Rx#:[id number] Oral 360 180 180 Other: Voiding Method Toilet Toilet Toilet # Voids 1 - Exam GENERAL: Sitting up in bed, no acute distress, HEENT: Conjunctivae normal. eyes normal. NECK: No JVD. No thyroid enlargement. No LNs CARDIOVASCULAR: S1, S2 regular.. No murmur RESPIRATION: Breath sounds diminished in the bases. No rhonchi, no wheezing ABDOMEN: Soft, nondistended, nontender, No guarding. no masses palpable. Bowel sounds heard. LEGS: no edema. no swelling PSYCHIATRY: Alert and oriented X3, mood and affect normal. NERVOUS SYSTEM: Cranial N 2-12 grossly normal. Moves all 4 limbs. Diffuse weakness No focal deficits. Strength and sensation grossly intact.. Skin: no lesions, no rash - Labs CBC & Chem 7: 07/26/19 06:55 07/26/19 06:55 Labs: Microbiology - Last 24 Hours (Table) 07/25/19 15:43 Group A Strep Throat Culture - Final Throat 07/22/19 15:44 Blood Culture - Preliminary Blood No Growth after 96 hours Assessment and Plan Assessment: Sepsis Left lower lobe pneumonia Colitis Acute COPD exacerbation Hypokalemia Likely fatty liver Sleep disorder breathing and sleep apnea Plan: Agree with IV antibiotics, can be changed to oral the time of discharge Breathing treatments Agree with discharge planning sleep study as outpatient and evaluation of COPD to be performed
[2019-07-27] MEDS: BENZOCAINE/MENTHOL LOZENG 1 EACH LOZENGE MUCOUS MEM PRN (14:35)
[2019-07-27] MEDS: LEVOFLOXACIN 750 MG TAB PO SCH (14:35)
[2019-07-27 15:16] VITALS: BP 126/85; PULSE 88; TEMP 98
--- NOTE | 2019-08-02 07:51 | CDI ---
Documentation Clarification Form Date: 08/02/19 From: Dominique Velez Phone: If you have a question about this query, please contact Radha Lowe, [employer] at [phone] between 8am and 5pm. Admit Date: 07/22/19 Discharge Date: 07/27/19 Patient Name: Ana Sorto Visit Number: ATTENTION: The Clinical Documentation Specialists (CDI) and [facility] Coding Staff appreciate your assistance in clarifying documentation. Please respond to the clarification below the line at the bottom and electronically sign. The CDI & [facility] Coding staff will review the response and follow-up if needed. Please note: Queries are made part of the Legal Health Record. If you have any questions, please contact the author of this message via ITS. Dear Dr. Amador Guzman The patient presented with fever, chills, high fever of 102. Rule out Legionella is documented in Dr. Hughes's consult note and 07/26 progress note, Dr. Encinas's 07/26 progress note and your 07/27 progress note. History/Risk Factors: Left lower lobe pneumonia Clinical Indicators: Fever, headache, cough, shortness of breath Lab findings: Urine Legionella Antigen not detected Radiology findings: CT of abdomen shows left lower lobe airspace consolidation consistent with pneumonia Vital Signs: T. 98.7 then up to 102.5, P. 139, R. 18, BP 149/79 Treatment: IV Rocephin, IV Zithromax initially then IV Unasyn In your professional opinion, can you please clarify if Legionella was ? Ruled In Ruled Out Other, please specify Unable to determine MTDD
--- NOTE | 2019-08-07 05:19 | DS ---
DISCHARGE SUMMARY DATE OF ADMISSION: 07/24/2019 DATE OF DISCHARGE: 07/27/2019 MEDICATIONS: 1. Augmentin 875 b.i.d. for 7 days. 2. Flexeril 5 mg t.i.d. p.r.n. 3. Tylenol 1000 mg q.6 hours p.r.n. 4. Singulair 10 mg daily p.r.n. 5. [place] 7.5 t.i.d. p.r.n. CONDITION: Stable. PROGNOSIS: Guarded. Ambulate as tolerated. An female admitted to the hospital with left lower lobe pneumonia, aspiration. Did not respond to Rocephin or azithromycin. Colitis, COPD exacerbation, hypokalemia. Zosyn which patient improved with over the next few days at which time she was switched to Augmentin on discharge. Follow up as an outpatient with Dr. Guzman. PATRIC / SAL: [id number] /
== END 2019-07-27 17:30 | disposition home or self-care (01) | DRG 871 ==
LOC: EC 15:03 → 3SCARD 18:35 → OBSVTOIN 07-24 09:49 → 4SSUR 07-24 20:59
PROVIDERS: ADMIT Family Medicine; ATTEND Family Medicine
DX: A41.9 Sepsis, unspecified organism (principal); J69.0 Pneumonitis due to inhalation of food and vomit; J44.1 Chronic obstructive pulmonary disease with (acute) exacerbation; E87.6 Hypokalemia; G47.30 Sleep apnea, unspecified; K76.0 Fatty (change of) liver, not elsewhere classified; K52.9 Noninfective gastroenteritis and colitis, unspecified; Z79.899 Other long term (current) drug therapy; Z86.19 Personal history of other infectious and parasitic diseases; Z87.891 Personal history of nicotine dependence; Z90.710 Acquired absence of both cervix and uterus; Z80.0 Family history of malignant neoplasm of digestive organs; Z80.1 Family history of malignant neoplasm of trachea, bronchus and lung; Z80.8 Family history of malignant neoplasm of other organs or systems
CPT/HCPCS: 36415; 70450; 74177; 76700; 80048; 80053; 81001; 82150; 83605; 83690; 83735; 84132; 84484; 85025; 87040; 87081; 87430; 87449; 87502; 93005; 94640; 96361; 96365; 96375; 99285

== ENCOUNTER 2019-08-15 21:15 | Emergency (ER) | payer MEDICARE ==
[2019-08-15] MEDS ORDERED: diphenhydrAMINE 50 MG/ML 1 ML VIAL IVP STA (21:41)
[2019-08-15] MEDS ORDERED: METOCLOPRAMIDE 5 MG/ML 2 ML VIAL IVP STA (21:41)
[2019-08-15] MEDS ORDERED: MORPHINE SULFATE 4 MG/ML SYRINGE IV STA (21:41)
[2019-08-15] MEDS ORDERED: SODIUM CHLORIDE 0.9% 500 ML 500 ML IV STA (21:41)
[2019-08-15] MEDS ORDERED: PROPARACAINE 0.5% OPHTH DROPS 15 ML BTL LEFT EYE STA (21:42)
[2019-08-15] MEDS ORDERED: ACETAMINOPHEN TAB 325 MG TAB PO STA (23:29)
[2019-08-15] MEDS ORDERED: FLUTICASONE 50MCG/SPRAY NASAL 16GM EA NOSTRIL STA (23:29)
[2019-08-16] MEDS ORDERED: AMOXIC-POT CLAV 875MG STARTER 2 EACH TABLET PO STA (00:03)
--- NOTE | 2019-08-16 00:13 | ED ---
General Adult HPI - General Chief complaint: Upper Respiratory Infection Stated complaint: Sinus Infection Time Seen by Provider: 08/15/19 21:24 Source: patient, RN notes reviewed, old records reviewed Mode of arrival: ambulatory Limitations: no limitations - History of Present Illness Initial comments: 68-year-old female patient presents to each chief complaint of sinus congestion, left maxillary sinus pressure and headache. Reports it has been ongoing for 2 days. Patient also reports that she has some pressure behind her left eye. Den ies rapid onset of headache. Denies any changes in vision. Denies any use of blood thinners. No other complaints. Patient reported started on ciprofloxacin for her sinusitis earlier today. Denies any other complaints. Systemic: Pt denies fatigue, fever/chills, rash. Pt denies weakness, night sweats, weight loss. Neuro: Pt denies visual disturbances, syncope or pre-syncope. HEENT: Pt denies ocular discharge or irritation, otalgia, rhinorrhea, pharyngitis or notable lymphadenopathy. Cardiopulmonary: Pt denies chest pain, SOB, heart palpitations, dyspnea on exertion. Abdominal/GI: Pt denies abdominal pain, n/v/d. : Pt denies dysuria, burning w/ urination, frequency/urgency. Denies new onset urinary or bowel incontinence. MSK: Pt denies myalgia, loss of strength or function in extremities. Neuro: Pt denies new onset weakness, paresthesias. - Related Data Home Medications Medication Instructions Recorded Confirmed Hydrocodone/Acetaminophen 1 tab PO TID PRN 05/08/14 07/22/19 [Hydrocodone/Acetaminophen 7.5-325] Acetaminophen Tab [Tylenol Tab] 1,000 mg PO Q6H PRN 07/22/19 07/22/19 Cyclobenzaprine [Flexeril] 5 mg PO TID PRN 07/22/19 07/22/19 Montelukast [Singulair] 10 mg PO DAILY PRN 07/22/19 07/22/19 Previous Rx's Medication Instructions Recorded Amoxic-Pot Clav 875-125Mg 1 tab PO Q12HR #14 tablet 07/27/19 [Augmentin 875-125] Amoxicillin/Potassium Clav 1 each PO Q12HR 10 Days #20 tab 08/16/19 [Augmentin 875-125 Tablet] Allergies Allergy/AdvReac Type Severity Reaction Status Date / Time No Known Allergies Allergy Verified 08/15/19 21:21 Review of Systems ROS Statement: Those systems with pertinent positive or pertinent negative responses have been documented in the HPI. ROS Other: All systems not noted in ROS Statement are negative. Past Medical History Past Medical History: Asthma, COPD Additional Past Medical History / Comment(s): back problems, EDEMA, cdiff History of Any Multi-Drug Resistant Organisms: C-DIFF Date of last positivie culture/infection: may 2019 MDRO Source:: stool Past Surgical History: Back Surgery, Hysterectomy Additional Past Surgical History / Comment(s): COLONOSCOPY, lower extremety edema Past Anesthesia/Blood Transfusion Reactions: No Reported Reaction Past Psychological History: No Psychological Hx Reported Smoking Status: Former smoker Past Alcohol Use History: None Reported Past Drug Use History: None Reported - Past Family History Brother(s) Family Medical History: Cancer Additional Family Medical History / Comment(s): One brother of lung cancer and another brother of stomach cancer. Sister(s) Family Medical History: Cancer Additional Family Medical History / Comment(s): Sister of "female" cancer. General Exam - General Exam Comments Initial Comments: Constitutional: NAD, AOX3, Pt has pleasant affect. HEENT: NC/AT, trachea midline, neck supple, no lymphadenopathy. Posterior pharynx non erythematous, without exudates. External ears appear normal, without discharge. Mucous membranes moist. Eyes PERRLA, EOM intact. There is no scleral icterus. No pallor noted. IOP average 10 bilaterally. Maxillary and sinus pressure reproducible. Cardiopulmonary: RRR, no murmurs, rubs or gallops, no JVD noted. Lungs CTAB in anterior and posterior alas. No peripheral edema. Abdominal exam: Abdomen soft and non-distended. Abdomen non-tender to palpation in all 4 quadrants. Bowel sounds active in LLQ. No hepatosplenomegaly. No ecchymosis Neuro: CN II-XII intact. No nuchal rigidity. No raccon eyes, no nieves sign, no hemotympanum. No cervical spinal tenderness. MSK: No posterior calf tenderness bilaterally, homans sign negative bilaterally. Posterior tibialis and radial pulse +2 bilaterally. Sensation intact in upper and lower extremities. Full active ROM in upper and lower extremities, 5/5 stregnth. Limitations: no limitations Course Vital Signs 08/15/19 08/15/19 08/15/19 21:19 22:08 23:32 Temperature 97.3 F L Pulse Rate 116 H 109 H 103 H Respiratory 20 18 16 Rate Blood Pressure 168/104 169/98 158/97 O2 Sat by Pulse 96 93 L 97 Oximetry Medical Decision Making - Medical Decision Making 68 year old female patient presents to ED with chief complaint of sinus congestion, pressure, headache. Patient was started on ciprofloxacin earlier today. Patient vital signs the displayed mild tachycardia likely secondary to pain. Heart rate 80 upon discharge by manual auscultation. Physical exam displayed intact neurologic exam. Maxillary and frontal sinus pressure reproducible. Patient headache resolved with administration of analgesia. Patient switch to Augmentin. Patient discharged with follow-up with primary care provider will return to ER if condition worsens. Case discussed with Dr. Copeland. Disposition Clinical Impression: Acute sinusitis Disposition: HOME SELF-CARE Condition: Stable Instructions (If sedation given, give patient instructions): Sinusitis (ED) Additional Instructions: Follow-up with primary care provider tomorrow. Return to ER if condition worsens in any way. Take antibiotics as directed. Stop taking the ciprofloxacin. Prescriptions: Amoxicillin/Potassium Clav [Augmentin 875-125 Tablet] 1 each PO Q12HR 10 Days #20 tab Is patient prescribed a controlled substance at d/c from ED?: No Referrals: Amador Guzman MD [Primary Care Provider] - 1-2 days
[2019-08-16 01:06] VITALS: BP 150/90; PULSE 112; RESP 17; TEMP 97.7
== END 2019-08-16 01:06 | disposition home or self-care (01) ==
LOC: EC 21:15
DX: J01.90 Acute sinusitis, unspecified (principal); R00.0 Tachycardia, unspecified; J44.9 Chronic obstructive pulmonary disease, unspecified; Z87.891 Personal history of nicotine dependence; Z79.899 Other long term (current) drug therapy; Z53.8 Procedure and treatment not carried out for other reasons
CPT/HCPCS: 99284; 96374; 96375; J1200; J2765

== ENCOUNTER → 2019-08-21 | Outpatient (CLI) | payer MEDICARE ==
--- NOTE | 2019-08-21 11:53 | XR ---
EXAMINATION TYPE: XR chest 2V DATE OF EXAM: 08/21/2019 COMPARISON: 07/19/2019 HISTORY: Cough. Pneumonia and bronchitis. TECHNIQUE: Frontal and lateral views of the chest are obtained. FINDINGS: Left basilar opacity has resolved. There is no focal air space opacity, pleural effusion, or pneumothorax seen. The cardiac silhouette size is within normal limits. The osseous structures are intact. IMPRESSION: Resolution the previously seen left basilar opacity. No acute cardiopulmonary process.
== END | disposition home or self-care (01) ==
LOC: RADXRMAIN 11:25
PROVIDERS: ATTEND Family Medicine
DX: J20.9 Acute bronchitis, unspecified (principal)
CPT/HCPCS: 71046

== ENCOUNTER → 2020-04-22 | Outpatient (CLI) | payer MEDICARE ==
--- NOTE | 2020-04-23 14:22 | MM ---
Reason for exam: additional evaluation requested from prior study. Last mammogram was performed 1 year and 9 months ago. History: Patient is postmenopausal and had first child at age 34. Physical Findings: Nurse Summary: 1.5cm nodule in the left breast at 10 o'clock (nurse mj). MG 3D Diag Mammo W/Cad ROBS[facility] Bilateral CC and MLO view(s) were taken. Prior study comparison: August 02, 2018, bilateral MG 3d screening mammo w/cad. May 19, 2017, bilateral MG 3d diag mammo w/cad ROBSON. The breast tissue is heterogeneously dense. This may lower the sensitivity of mammography. There is no discrete abnormality. These results were verbally communicated with the patient and result sheet given to the patient on 04/22/20. ASSESSMENT: Incomplete: need additional imaging evaluation, BI-RAD 0 RECOMMENDATION: Ultrasound of the left breast. (palpable by nurse)
--- NOTE | 2020-04-23 14:23 | USB ---
Reason for exam: additional evaluation requested from abnormal screening. History: Patient is postmenopausal and had first child at age 34. US Breast Limited LT Left limited breast ultrasound including focal area of concern, retroareolar and axilla demonstrates no cystic or solid lesion seen. These results were verbally communicated with the patient and result sheet given to the patient on 04/22/20. ASSESSMENT: Negative, BI-RAD 1 RECOMMENDATION: Routine screening mammogram of both breasts in 1 year. Manage on a clinical basis with regard to left pain.
== END | disposition home or self-care (01) ==
LOC: RADMAMWWP 12:54
PROVIDERS: ATTEND Family Medicine
DX: N64.4 Mastodynia (principal); R92.8 Other abnormal and inconclusive findings on diagnostic imaging of breast
CPT/HCPCS: 77066; 76642; G0279; 77062

== ENCOUNTER → 2020-05-06 | Outpatient (CLI) | payer MEDICARE ==
[2020-05-06 11:55] LABS: Basophils % (A) 1 %; Eosinophils # (A) 0.3 k/uL (0-0.7); Eosinophils % (A) 5 %; HGB 13.8 gm/dL (11.4-16.0); Lymphocytes % (A) 33 %; MCH 27.8 pg (25.0-35.0); MCHC 32.2 g/dL (31.0-37.0); MCV 86.4 fL (80.0-100.0); Mean Platelet Volume 7.8; Monocytes # (A) 0.3 k/uL (0-1.0); Monocytes % (A) 6 %; Neutrophils # (A) 3.2 k/uL (1.3-7.7); Neutrophils % (A) 54 %; Platelet Count 251 k/uL (150-450); RBC 4.98 m/uL (3.80-5.40); RDW 13.3 % (11.5-15.5)
[2020-05-06 15:27] LABS: African American GFR (CKD) 103.9 (60.0-200.0); Albumin 4.4 g/dL (3.80-4.90); Albumin/Globulin Ratio 1.83 (1.60-3.17); Anion Gap 8.7 mmol/L (4.00-12.00); BUN/Creat Ratio 18.57 Ratio (12.00-20.00); Calcium 9.5 mg/dL (8.7-10.3); Carbon Dioxide 25.3 mmol/L (21.6-31.8); Chol/HDL Ratio 4.45; Globulin 2.4 g/dL (1.6-3.3); Non-African American GFR(CKD) 89.7 (60.0-200.0); Potassium 3.9 mmol/L (3.5-5.5); Total Bilirubin 0.6 mg/dL (0.2-1.2); Total Protein 6.8 g/dL (6.2-8.2)
[2020-05-06 16:20] LABS: Hemoglobin A1C 5.9 % (4.0-6.0)
== END | disposition home or self-care (01) ==
LOC: LABWHC1 09:57
PROVIDERS: ATTEND Family Medicine
DX: I10 Essential (primary) hypertension (principal)
CPT/HCPCS: 36415; 80053; 80061; 83036; 84443; 85025

== ENCOUNTER 2020-06-20 09:01 | Day surgery (SDC) | payer MEDICARE ==
[2020-06-18 15:45] VITALS: BMI 35.2
[~2020-06-20 09:01] MED LIST: LACTATED RINGERS 1,000 ML IV SCH; LIDOCAINE 1% (10MG/ML) FOR IV START INTRADERMA PRN
[2020-06-20 09:23] VITALS: RESP 16; TEMP 98
[2020-06-20] MEDS ORDERED: LIDOCAINE 1% INJ 10MG/ML (20 ML MDV) ONE (09:48)
[2020-06-20] MEDS ORDERED: PROPOFOL 10 MG/ML 20 ML VIAL IV ONE (09:48)
--- NOTE | 2020-06-20 10:36 | P.PCN ---
Date of Procedure: 06/20/20 Description of Procedure: BRIEF HISTORY: Patient is a 69-year-old female presenting for outpatient colonoscopy for screening for malignant neoplasm of the colon. She does report prior colonoscopies with polypectomy. Denies change in bowel habits, blood per rectum or abdominal pain. PROCEDURE PERFORMED: Colonoscopy with polypectomy. PREOPERATIVE DIAGNOSIS: Screening for malignant neoplasm of the colon, last colonoscopy 5 cm ago per patient recollection. ESTIMATED BLOOD LOSS: Minimal. IV sedation per Anesthesia. PROCEDURE: After informed consent was obtained, the patient, was brought into the endoscopy unit. IV sedation was administered by Anesthesia under continuous monitoring. Digital rectal examination was normal. Initially the Olympus CF-190 flexible video colonoscope was then inserted in the rectum, gradually advanced into the cecum without any difficulty. Careful examination was performed as the scope was gradually being withdrawn. Ileocecal valve and the appendiceal orifice were visualized and appeared normal. Prep was excellent. Mucosa of the cecum, ascending colon, transverse colon, descending colon, sigmoid colon, and rectum appeared normal. 2 diminutive polyps measuring 2 and 3 mm in size removed from the transverse colon with cold forcep polypectomy. Multiple small and large diverticula noted in the left colon. Retroflexion was performed in the rectum and no lesions were seen. The patient tolerated the procedure well. IMPRESSION: 2 diminutive transverse colon polyp removed with cold forceps. Moderate left colonic diverticulosis . RECOMMENDATIONS: Findings of this examination were discussed with the patient and her [id number]. Okay to resume diet. Okay to resume medications. Await pathology from polypectomies. Would recommend repeat colonoscopy in 7 years for colon polyps pending pathology from polypectomies.
[2020-06-20 10:49] VITALS: BP 139/101; PULSE 86
== END 2020-06-20 11:24 ==
LOC: ORWHC2ENDO 09:01
PROVIDERS: ATTEND Internal Medicine
DX: Z12.11 Encounter for screening for malignant neoplasm of colon (principal); K63.5 Polyp of colon; K57.30 Diverticulosis of large intestine without perforation or abscess without bleeding; J44.9 Chronic obstructive pulmonary disease, unspecified; Z97.2 Presence of dental prosthetic device (complete) (partial); Z90.710 Acquired absence of both cervix and uterus; Z98.42 Cataract extraction status, left eye; Z98.41 Cataract extraction status, right eye; Z98.890 Other specified postprocedural states; Z79.891 Long term (current) use of opiate analgesic; Z79.899 Other long term (current) drug therapy; Z88.6 Allergy status to analgesic agent
CPT/HCPCS: 88305; 45380; J2001; J2704; 45385

== ENCOUNTER → 2020-10-24 | Outpatient (CLI) | payer MEDICARE ==
--- NOTE | 2020-10-24 12:16 | CT ---
EXAMINATION TYPE: CT abdomen pelvis wo con DATE OF EXAM: 10/24/2020 COMPARISON: 07/22/2019 HISTORY: Left lower quadrant pain. Patient being treated for UTI. CT DLP: 559.6 mGycm Examination of the solid and hollow viscera is limited given the lack of contrast. FINDINGS: LUNG BASES: No evidence for nodule. No evidence for infiltrate. LIVER/GB: The gallbladder is unremarkable. No space-occupying hepatic lesion. PANCREAS: No pancreatic mass identified. No inflammatory process seen. SPLEEN: No evidence for splenomegaly. No intrasplenic lesions seen. ADRENALS: No adrenal nodules identified. No evidence for thickening. KIDNEYS: No evidence for renal mass. No nephrolithiasis. No hydronephrosis. BOWEL: No evidence of bowel obstruction. No inflammatory process. Scattered colonic diverticulosis wi thout diverticulitis. Lymph nodes: No evidence for adenopathy greater than 1 cm. Abdominal aorta: Atheromatous changes seen. No evidence for aneurysm. Genital organs: No significant abnormality. Other: No significant abnormality. IMPRESSION: NO ACUTE PROCESS TO ACCOUNT FOR THE PATIENT'S SYMPTOMS.
== END | disposition home or self-care (01) ==
LOC: RADCTMAIN 11:42
PROVIDERS: ATTEND Family Medicine
DX: R10.32 Left lower quadrant pain (principal)
CPT/HCPCS: 74176

== ENCOUNTER → 2021-03-24 | Outpatient (CLI) | payer MEDICARE ==
--- NOTE | 2021-03-24 15:00 | XR ---
EXAMINATION TYPE: XR tibia fibula LT DATE OF EXAM: 03/24/2021 CLINICAL HISTORY: Knee and lower leg pain after fall off ladder TECHNIQUE: Two views of the left leg are obtained. COMPARISON: None. FINDINGS: There is no acute fracture or dislocation seen in the left tibia or fibula. IMPRESSION: There is no acute fracture or dislocation seen in the left tibia or fibula.
--- NOTE | 2021-03-24 16:13 | XR ---
EXAMINATION TYPE: XR knee complete LT DATE OF EXAM: 03/24/2021 CLINICAL HISTORY: Pain after fall TECHNIQUE: Three views of the left knee are obtained. COMPARISON: None. FINDINGS: There is no acute fracture/dislocation evident in left knee. The tri-compartment joint sp aces appear within normal limits. The overlying soft tissue appears unremarkable. IMPRESSION: There is no acute fracture or dislocation in the left knee.
== END | disposition home or self-care (01) ==
LOC: RADXRMAIN 13:23
PROVIDERS: ATTEND Family Medicine
DX: M79.662 Pain in left lower leg (principal); M25.562 Pain in left knee; W19.XXXA Unspecified fall, initial encounter

== ENCOUNTER 2021-04-30 21:40 | Emergency (ER) | payer MEDICARE ==
[2021-04-30 21:50] VITALS: TEMP 98.4
[2021-05-01] MEDS ORDERED: ONDANSETRON 4 MG/2 ML VIAL IVP STA (00:10)
[2021-05-01] MEDS ORDERED: SODIUM CHLORIDE 0.9% 500 ML 500 ML IV STA (00:10)
--- NOTE | 2021-05-01 00:39 | ED ---
Nausea/Vomiting/Diarrhea HPI - General Chief complaint: Nausea/Vomiting/Diarrhea Stated complaint: vomiting Time Seen by Provider: 04/30/21 23:57 Source: patient Mode of arrival: ambulatory Limitations: no limitations - History of Present Illness Initial comments: This patient is a 70-year-old woman who presents to be evaluated for nausea and vomiting that has been going on premature all day. She states it started around 7 AM when she woke up. She did try to go to [facility] but still having vomiting. Denies abdominal pain. No fever or chills. No change in urination. MD complaint: nausea, vomiting -: hour(s) Description of Vomiting: food contents Associated Abdominal Pain: No Severity scale (1-10): 0 Improves with: none Worsens with: none Associated Symptoms: headaches - Related Data Home Medications Medication Instructions Recorded Confirmed Hydrocodone/Acetaminophen 1 tab PO TID PRN 05/08/14 06/18/20 [Hydrocodone/Acetaminophen 7.5-325] Selenium 200 mg PO DAILY 06/18/20 06/18/20 amLODIPine [Norvasc] 5 mg PO DAILY 06/18/20 06/18/20 Previous Rx's Medication Instructions Recorded Ondansetron Odt [Zofran ODT] 4 mg PO Q8HR PRN #10 tab 05/01/21 Allergies Allergy/AdvReac Type Severity Reaction Status Date / Time No Known Allergies Allergy Verified 04/30/21 21:50 Review of Systems ROS Statement: Those systems with pertinent positive or pertinent negative responses have been documented in the HPI. ROS Other: All systems not noted in ROS Statement are negative. Constitutional: Denies: fever, chills Respiratory: Denies: cough, dyspnea Cardiovascular: Denies: chest pain, palpitations Gastrointestinal: Reports: nausea, vomiting. Denies: abdominal pain, diarrhea, hematemesis, melena, hematochezia Genitourinary: Denies: dysuria, hematuria Musculoskeletal: Denies: back pain Skin: Denies: rash Neurological: Denies: headache, weakness, numbness Past Medical History Past Medical History: Asthma, COPD, Hypertension Additional Past Medical History / Comment(s): back problems, EDEMA, cdiff History of Any Multi-Drug Resistant Organisms: C-DIFF Date of last positivie culture/infection: may 2019 MDRO Source:: stool Past Surgical History: Back Surgery, Hysterectomy Additional Past Surgical History / Comment(s): COLONOSCOPY,. BILAT CATARACT REMOVAL WITH LENS IMPLANT Past Anesthesia/Blood Transfusion Reactions: No Reported Reaction Past Psychological History: No Psychological Hx Reported Smoking Status: Former smoker Past Alcohol Use History: None Reported Past Drug Use History: None Reported - Past Family History Brother(s) Family Medical History: Cancer Additional Family Medical History / Comment(s): One brother of lung cancer and another brother of stomach cancer. Sister(s) Family Medical History: Cancer Additional Family Medical History / Comment(s): Sister of "female" cancer. General Exam Limitations: no limitations General appearance: alert, in no apparent distress Head exam: Present: atraumatic, normocephalic Eye exam: Present: normal appearance. Absent: scleral icterus, conjunctival injection ENT exam: Present: normal oropharynx Neck exam: Present: normal inspection Respiratory exam: Present: normal lung sounds bilaterally. Absent: respiratory distress, wheezes, rales, rhonchi, stridor Cardiovascular Exam: Present: regular rate, normal rhythm GI/Abdominal exam: Present: soft. Absent: distended, tenderness, guarding, rebound, rigid, mass, pulsatile mass, hernia Extremities exam: Present: normal inspection, normal capillary refill. Absent: pedal edema, calf tenderness Back exam: Present: normal inspection. Absent: CVA tenderness (R), CVA tenderness (L) Neurological exam: Present: alert Skin exam: Present: warm, dry, intact, normal color. Absent: rash Course Vital Signs 04/30/21 05/01/21 05/01/21 21:44 00:50 01:55 Temperature 98.4 F Pulse Rate 124 H 106 H 92 Respiratory 18 16 16 Rate Blood Pressure 147/101 156/88 133/86 O2 Sat by Pulse 94 L 95 96 Oximetry 05/01/21 03:50 Temperature Pulse Rate 88 Respiratory 18 Rate Blood Pressure 131/78 O2 Sat by Pulse 98 Oximetry Medical Decision Making - Medical Decision Making Patient is reevaluated following medication studies. He is feeling well and went to go home. The vomiting has resolved. There is no abdominal tenderness. We discussed the leukocytosis, which at this point appears reactive to vomiting. Discussed that if she is having worsening in any way she will return discussed other return parameters as well as appropriate further care and follow-up. - Lab Data Result diagrams: 05/01/21 00:18 05/01/21 00:18 Lab Results 05/01/21 05/01/21 05/01/21 Range/Units 00:18 00:18 00:18 WBC 16.3 H (3.8-10.6) k/uL RBC 5.85 H (3.80-5.40) m/uL Hgb 16.9 H (11.4-16.0) gm/dL Hct 50.5 H (34.0-46.0) % MCV 86.5 (80.0-100.0) fL MCH 28.8 (25.0-35.0) pg MCHC 33.4 (31.0-37.0) g/dL RDW 13.4 (11.5-15.5) % Plt Count 315 (150-450) k/uL MPV 8.0 Neutrophils % 85 % Lymphocytes % 8 % Monocytes % 6 % Eosinophils % 0 % Basophils % 0 % Neutrophils # 13.8 H (1.3-7.7) k/uL Lymphocytes # 1.4 (1.0-4.8) k/uL Monocytes # 0.9 (0-1.0) k/uL Eosinophils # 0.1 (0-0.7) k/uL Basophils # 0.0 (0-0.2) k/uL Sodium 140 (137-145) mmol/L Potassium 4.3 (3.5-5.1) mmol/L Chloride 106 (98-107) mmol/L Carbon Dioxide 22 (22-30) mmol/L Anion Gap 12 mmol/L BUN 12 (7-17) mg/dL Creatinine 0.61 (0.52-1.04) mg/dL Est GFR (CKD-EPI)AfAm >90 (>60 ml/min/1.73 sqM) Est GFR (CKD-EPI)NonAf >90 (>60 ml/min/1.73 sqM) Glucose 118 H (74-99) mg/dL Calcium 10.6 H (8.4-10.2) mg/dL Total Bilirubin 0.4 (0.2-1.3) mg/dL AST 37 H (14-36) U/L ALT 33 (4-34) U/L Alkaline Phosphatase 105 (38-126) U/L Troponin I <0.012 (0.000-0.034) ng/mL Total Protein 8.4 H (6.3-8.2) g/dL Albumin 5.1 H (3.5-5.0) g/dL Amylase 74 (30-110) U/L Lipase 105 (23-300) U/L Urine Color Urine Appearance (Clear) Urine pH (5.0-8.0) Ur Specific [place] (1.001-1.035) Urine Protein (Negative) Urine Glucose (UA) (Negative) Urine Ketones (Negative) Urine Blood (Negative) Urine Nitrite (Negative) Urine Bilirubin (Negative) Urine Urobilinogen (<2.0) mg/dL Ur Leukocyte Esterase (Negative) Urine RBC (0-5) /hpf Urine WBC (0-5) /hpf Ur Squamous Epith Cells (0-4) /hpf Urine Mucus (None) /hpf 05/01/21 Range/Units 03:02 WBC (3.8-10.6) k/uL RBC (3.80-5.40) m/uL Hgb (11.4-16.0) gm/dL Hct (34.0-46.0) % MCV (80.0-100.0) fL MCH (25.0-35.0) pg MCHC (31.0-37.0) g/dL RDW (11.5-15.5) % Plt Count (150-450) k/uL MPV Neutrophils % % Lymphocytes % % Monocytes % % Eosinophils % % Basophils % % Neutrophils # (1.3-7.7) k/uL Lymphocytes # (1.0-4.8) k/uL Monocytes # (0-1.0) k/uL Eosinophils # (0-0.7) k/uL Basophils # (0-0.2) k/uL Sodium (137-145) mmol/L Potassium (3.5-5.1) mmol/L Chloride (98-107) mmol/L Carbon Dioxide (22-30) mmol/L Anion Gap mmol/L BUN (7-17) mg/dL Creatinine (0.52-1.04) mg/dL Est GFR (CKD-EPI)AfAm (>60 ml/min/1.73 sqM) Est GFR (CKD-EPI)NonAf (>60 ml/min/1.73 sqM) Glucose (74-99) mg/dL Calcium (8.4-10.2) mg/dL Total Bilirubin (0.2-1.3) mg/dL AST (14-36) U/L ALT (4-34) U/L Alkaline Phosphatase (38-126) U/L Troponin I (0.000-0.034) ng/mL Total Protein (6.3-8.2) g/dL Albumin (3.5-5.0) g/dL Amylase (30-110) U/L Lipase (23-300) U/L Urine Color Yellow Urine Appearance Clear (Clear) Urine pH 7.0 (5.0-8.0) Ur Specific [place] 1.013 (1.001-1.035) Urine Protein Trace H (Negative) Urine Glucose (UA) Negative (Negative) Urine Ketones Negative (Negative) Urine Blood Small H (Negative) Urine Nitrite Negative (Negative) Urine Bilirubin Negative (Negative) Urine Urobilinogen <2.0 (<2.0) mg/dL Ur Leukocyte Esterase Negative (Negative) Urine RBC 5 (0-5) /hpf Urine WBC 2 (0-5) /hpf Ur Squamous Epith Cells <1 (0-4) /hpf Urine Mucus Rare H (None) /hpf - EKG Data -: EKG Interpreted by [place] EKG shows normal: sinus rhythm, axis (Normal), intervals (Normal), QRS complexes (Normal), ST-T waves (Normal) Rate: tachycardia (Rate 113 bpm) Disposition Clinical Impression: Vomiting Disposition: HOME SELF-CARE Condition: Good Instructions (If sedation given, give patient instructions): Acute Nausea and Vomiting (ED) Prescriptions: Ondansetron Odt [Zofran ODT] 4 mg PO Q8HR PRN #10 tab PRN Reason: Nausea Is patient prescribed a controlled substance at d/c from ED?: No Referrals: Amador Guzman MD [Primary Care Provider] - 1-2 days
[2021-05-01 01:04] LABS: Basophils % (A) 0 %; Eosinophils # (A) 0.1 k/uL (0-0.7); Eosinophils % (A) 0 %; HCT 50.5 % (34.0-46.0); HGB 16.9 gm/dL (11.4-16.0); Lymphocytes # (A) 1.4 k/uL (1.0-4.8); Lymphocytes % (A) 8 %; MCH 28.8 pg (25.0-35.0); MCHC 33.4 g/dL (31.0-37.0); MCV 86.5 fL (80.0-100.0); Monocytes # (A) 0.9 k/uL (0-1.0); Monocytes % (A) 6 %; Neutrophils # (A) 13.8 k/uL (1.3-7.7); Neutrophils % (A) 85 %; Platelet Count 315 k/uL (150-450); RBC 5.85 m/uL (3.80-5.40); RDW 13.4 % (11.5-15.5); WBC 16.3 k/uL (3.8-10.6)
[2021-05-01 01:45] LABS: ALT 33 U/L (4-34); AST 37 U/L (14-36); African American GFR (CKD) >90 (>60 ml/min/1.73 sqM); Albumin 5.1 g/dL (3.5-5.0); Alkaline Phosphatase 105 U/L (38-126); Amylase 74 U/L (30-110); Anion Gap 12 mmol/L; Blood Urea Nitrogen 12 mg/dL (7-17); Calcium 10.6 mg/dL (8.4-10.2); Carbon Dioxide 22 mmol/L (22-30); Chloride 106 mmol/L (98-107); Glucose 118 mg/dL (74-99); Lipase 105 U/L (23-300); Non-African American GFR(CKD) >90 (>60 ml/min/1.73 sqM); Potassium 4.3 mmol/L (3.5-5.1); Sodium 140 mmol/L (137-145); Total Bilirubin 0.4 mg/dL (0.2-1.3); Total Protein 8.4 g/dL (6.3-8.2)
[2021-05-01 03:14] LABS: Appearance,Urine Clear (Clear); Bilirubin,Urine Negative (Negative); Blood,Urine Small (Negative); Color,Urine Yellow; Glucose,Urine (UA) Negative (Negative); Ketones,Urine Negative (Negative); Leukocyte Esterase,Urine Negative (Negative); Mucus,Urine Rare /hpf; Nitrite,Urine Negative (Negative); Protein,Urine Trace (Negative); RBC,Urine 5 /hpf (0-5); Specific Gravity,Urine 1.013 (1.001-1.035); Squamous Epithelial Cell,Urine <1 /hpf (0-4); Urobilinogen,Urine <2.0 mg/dL (<2.0); WBC,Urine 2 /hpf (0-5)
[2021-05-01 04:47] VITALS: BP 131/78; PULSE 88; RESP 18
== END 2021-05-01 04:40 | disposition home or self-care (01) ==
LOC: EC 21:40
DX: R11.2 Nausea with vomiting, unspecified (principal); I10 Essential (primary) hypertension; J44.9 Chronic obstructive pulmonary disease, unspecified; Z79.899 Other long term (current) drug therapy; Z87.891 Personal history of nicotine dependence; Z80.1 Family history of malignant neoplasm of trachea, bronchus and lung
CPT/HCPCS: 36415; 93005; 80053; 82150; 83690; 84484; 85025; 81001; 96374; 99284; J2405

== ENCOUNTER → 2021-06-20 | Outpatient (CLI) | payer MEDICARE ==
--- NOTE | 2021-06-24 11:13 | MM ---
Reason for exam: screening (asymptomatic). Last mammogram was performed 1 year and 2 months ago. History: Patient is postmenopausal and had first child at age 34. Physical Findings: A clinical breast exam by your physician is recommended on an annual basis and results should be correlated with mammographic findings. MG 3D Screening Mammo W/Cad Bilateral CC and MLO view(s) were taken. Prior study comparison: April 22, 2020, bilateral MG 3d diag mammo w/cad [facility]. August 02, 2018, bilateral MG 3d screening mammo w/cad. The breast tissue is heterogeneously dense. This may lower the sensitivity of mammography. No significant changes when compared with prior studies. ASSESSMENT: Benign, BI-RAD 2 RECOMMENDATION: Routine screening mammogram of both breasts in 1 year.
== END | disposition home or self-care (01) ==
LOC: RADMAMWWP 07:12
PROVIDERS: ATTEND Family Medicine
DX: Z12.31 Encounter for screening mammogram for malignant neoplasm of breast (principal); Z78.0 Asymptomatic menopausal state
CPT/HCPCS: 77063; 77067

== ENCOUNTER → 2021-06-27 | Outpatient (CLI) | payer MEDICARE ==
[2021-06-27 11:14] LABS: WBC 6.24 X 10*3/uL (4.50-10.00)
[2021-06-27 11:15] LABS: HCT 43.8 % (37.2-46.3); MCH 27.7 pg (27.0-32.0); MCV 86.7 fL (80.0-97.0); Mean Platelet Volume 10.4 fL (9.5-12.2); Platelet Count 256 X 10*3/uL (140-440); RBC 5.05 X 10*6/uL (4.10-5.20); RDW 13.5 % (11.5-14.5)
[2021-06-27 16:44] LABS: African American GFR (CKD) 103.2 (60.0-200.0); Anion Gap 13.8 mmol/L (4.00-12.00); Blood Urea Nitrogen 10.2 mg/dL (9.0-27.0); Carbon Dioxide 20.2 mmol/L (21.6-31.8); Chol/HDL Ratio 5.25 Ratio; HDL Cholesterol 42.1 mg/dL (40.00-60.00); LDL Cholesterol,Calculated 153.3 mg/dL (0.0-131.0); Potassium 4.3 mmol/L (3.5-5.5); VLDL Calculation 25.6 mg/dL (5.00-40.00)
== END | disposition home or self-care (01) ==
LOC: LABWHC1 07:37
PROVIDERS: ATTEND Family Medicine
DX: D50.8 Other iron deficiency anemias (principal); R53.83 Other fatigue; K90.89 Other intestinal malabsorption; E03.9 Hypothyroidism, unspecified; N94.6 Dysmenorrhea, unspecified; E55.9 Vitamin D deficiency, unspecified; E53.9 Vitamin B deficiency, unspecified; R63.5 Abnormal weight gain; G47.9 Sleep disorder, unspecified; R10.84 Generalized abdominal pain; R14.0 Abdominal distension (gaseous); K90.41 Non-celiac gluten sensitivity; G43.909 Migraine, unspecified, not intractable, without status migrainosus; B82.9 Intestinal parasitism, unspecified; E63.9 Nutritional deficiency, unspecified
CPT/HCPCS: 36415; 80051; 80061; 82565; 83036; 84520; 85027

== ENCOUNTER → 2021-10-03 | Outpatient (CLI) | payer MEDICARE ==
[2021-10-03 14:31] LABS: Basophils # (A) 0.05 X 10*3/uL (0.00-0.10); Basophils % (A) 0.7 %; Eosinophils # (A) 0.44 X 10*3/uL (0.04-0.35); Eosinophils % (A) 6.6 %; HCT 42.3 % (37.2-46.3); HGB 13.6 g/dL (12.0-15.0); Lymphocytes # (A) 2.71 X 10*3/uL (0.90-5.00); Lymphocytes % (A) 40.5 %; MCH 28.4 pg (27.0-32.0); MCHC 32.2 g/dL (32.0-37.0); MCV 88.3 fL (80.0-97.0); Mean Platelet Volume 10.2 fL (9.5-12.2); Monocytes # (A) 0.43 X 10*3/uL (0.20-1.00); Monocytes % (A) 6.4 %; Neutrophils # (A) 3.05 X 10*3/uL (1.80-7.70); Neutrophils % (A) 45.7 %; Platelet Count 266 X 10*3/uL (140-440); RBC 4.79 X 10*6/uL (4.10-5.20); RDW 13.4 % (11.5-14.5); WBC 6.69 X 10*3/uL (4.50-10.00)
[2021-10-03 14:53] LABS: ALT 24 U/L (8-44); AST 28 U/L (13-35); African American GFR (CKD) 103.2 (60.0-200.0); Albumin 4.2 g/dL (3.8-4.9); Alkaline Phosphatase 76 U/L (41-126); BUN/Creat Ratio 14.14 Ratio (12.00-20.00); Blood Urea Nitrogen 9.9 mg/dL (9.0-27.0); Calcium 9.4 mg/dL (8.7-10.3); Carbon Dioxide 22.1 mmol/L (20.0-27.5); Chloride 107 mmol/L (96-109); Chol/HDL Ratio 4.77 Ratio; Globulin 2.8 g/dL (1.6-3.3); Glucose 88 mg/dL (70-110); Potassium 3.8 mmol/L (3.5-5.5); Sodium 141 mmol/L (135-145); VLDL Calculation 16.24 mg/dL (5.00-40.00)
== END | disposition home or self-care (01) ==
LOC: LABWHC1 09:26
PROVIDERS: ATTEND Family Medicine
DX: E11.9 Type 2 diabetes mellitus without complications (principal); I10 Essential (primary) hypertension; Z79.899 Other long term (current) drug therapy
CPT/HCPCS: 36415; 80053; 80061; 83036; 84443; 85025

== ENCOUNTER → 2022-07-29 | Outpatient (CLI) | payer MEDICARE ==
--- NOTE | 2022-07-30 08:59 | MM ---
Reason for Exam: Screening (asymptomatic). Last mammogram was performed 1 year(s) and 1 month(s) ago. Patient History: Menarche at age 14. First Full-Term at age 34. Late child-bearing (after 30). Left ovary removed at age 54. Right ovary removed at age 54. Hysterectomy at age 54. Postmenopausal. Niece had ovarian cancer. Sister had ovarian cancer. Risk Values: Melissa 5 year model risk: 2.4%. NCI Lifetime model risk: 7.3%. Prior Study Comparison: 08/02/2018 Bilateral Screening Mammogram, [facility]. 04/22/2020 Bilateral Diagnostic Mammogram, [facility]. 06/20/2021 Bilateral Screening Mammogram, [facility]. Tissue Density: The breast tissue is heterogeneously dense. This may lower the sensitivity of mammography. Findings: Analyzed By CAD. There is no suspicious group of microcalcifications or new suspicious mass in either breast. Chronic nodularity within both breasts. No significant change from prior exams. Overall Assessment: Benign, BI-RAD 2 Management: Screening Mammogram of both breasts in 1 year. A clinical breast exam by your physician is recommended on an annual basis and results should be correlated with mammographic findings. Electronically signed and approved by: Bernardo Bourgeois D.O.
== END | disposition home or self-care (01) ==
LOC: RADMAMWWP 13:30
PROVIDERS: ATTEND Family Medicine
DX: Z12.31 Encounter for screening mammogram for malignant neoplasm of breast (principal); Z78.0 Asymptomatic menopausal state; Z90.721 Acquired absence of ovaries, unilateral; Z80.41 Family history of malignant neoplasm of ovary
CPT/HCPCS: 77063; 77067

== ENCOUNTER 2023-02-09 10:50 | Emergency (ER) | payer MEDICARE ==
[2023-02-09] MEDS ORDERED: LIDOCAINE 1% INJ 10MG/ML (30 ML VIAL-PF) SQ ONE (11:24)
--- NOTE | 2023-02-09 11:24 | ED ---
General Adult HPI - General Stated complaint: foreign object lt hand finger Time Seen by Provider: 02/09/23 11:24 Source: RN notes reviewed - History of Present Illness Initial comments: 72 Old -[place] female with no significant past medical history presents to the emergency department with a chief complaint of foreign body IN left hand. Patient reports that she was fishing when she got a fishing were stuck in her left thumb. She reports that the vero was cut off. She is up-to-date on her tetanus vaccination. She denies any numbness or tingling in the extremity. - Related Data Home Medications Medication Instructions Recorded Confirmed Hydrocodone/Acetaminophen 1 tab PO TID PRN 05/08/14 06/18/20 [Hydrocodone/Acetaminophen 7.5-325] Selenium 200 mg PO DAILY 06/18/20 06/18/20 amLODIPine [Norvasc] 5 mg PO DAILY 06/18/20 06/18/20 Previous Rx's Medication Instructions Recorded Ondansetron Odt [Zofran ODT] 4 mg PO Q8HR PRN #10 tab 05/01/21 Cephalexin [Keflex] 500 mg PO Q6HR 5 Days #20 cap 02/09/23 Allergies Allergy/AdvReac Type Severity Reaction Status Date / Time No Known Allergies Allergy Verified 02/09/23 11:25 Review of Systems ROS Statement: Those systems with pertinent positive or pertinent negative responses have been documented in the HPI. ROS Other: All systems not noted in ROS Statement are negative. Past Medical History Past Medical History: Asthma, COPD, Hypertension Additional Past Medical History / Comment(s): back problems, EDEMA, cdiff History of Any Multi-Drug Resistant Organisms: C-DIFF Date of last positivie culture/infection: may 2019 MDRO Source:: stool Past Surgical History: Back Surgery, Hysterectomy Additional Past Surgical History / Comment(s): COLONOSCOPY,. BILAT CATARACT REMOVAL WITH LENS IMPLANT Past Anesthesia/Blood Transfusion Reactions: No Reported Reaction Past Psychological History: No Psychological Hx Reported Smoking Status: Former smoker Past Alcohol Use History: None Reported Past Drug Use History: None Reported - Past Family History Brother(s) Family Medical History: Cancer Additional Family Medical History / Comment(s): One brother of lung cancer and another brother of stomach cancer. Sister(s) Family Medical History: Cancer Additional Family Medical History / Comment(s): Sister of "female" cancer. General Exam - General Exam Comments Initial Comments: Visual Physical Exam Vital signs reviewed General: Well-appearing, nontoxic, no acute distress. Head: Normocephalic, atraumatic Eyes: PERRLA, EOMI ENT: Airway patent Chest: Nonlabored breathing Skin: No visual rash, normal skin tone Neuro: Alert and oriented 3 Musculoskeletal: No gross abnormalities General: Alert, in no acute distress Head: atraumatic normocephalic. Eyes PERRL, EOMI intact, mucous membranes moist Respiratory: Lungs clear to auscultation bilaterally Cardiovascular: Heart rate regular rate and rhythm Abdominal: Soft without guarding or rebound Extremities: Normal inspection with full range of motion and normal capillary refill, left thumb with fishing AND DIP joint. Full range of motion. 2+ Distal pulses bilaterally Neuroogic: alert and oriented 3, CN II-XII intact, able to ambulate with steady gait Skin: warm dry and intact with normal color 1 body successfully removed during the course of the ED. Course Vital Signs 02/09/23 12:42 Temperature 97.9 F Pulse Rate 82 Respiratory 18 Rate Blood Pressure 131/77 O2 Sat by Pulse 100 Oximetry - Reevaluation(s) Reevaluation #1: 02/09/23 12:30 Patient refusing x-ray at this time. Patient would like to be discharged home. Medical Decision Making - Medical Decision Making Was pt. sent in by a medical professional or institution (CARIE Pollard, WEBSITE DEVELOPER, urgent care, hospital, or custodial...) When possible be specific @ -[No] Did you speak to anyone other than the patient for history (EMS, parent, family, police, friend...)? What history was obtained from this source @ -[No] Did you review nursing and triage notes (agree or disagree)? Why? @ -[I reviewed and agree with nursing and triage notes] Were old charts reviewed (outside hosp., previous admission, EMS record, old EKG, old radiological studies, urgent care reports/EKG's, custodial records)? Report findings @ -[No old charts were reviewed] Differential Diagnosis (chest pain, altered mental status, abdominal pain women, abdominal pain men, vaginal bleeding, weakness, fever, dyspnea, syncope, headache, dizziness, GI bleed, back pain, seizure, CVA, palpatations, mental health, musculoskeletal)? @ -[not applicable] EKG interpreted by me (3pts min.). @ -[As above] X-rays interpreted by me (1pt min.). @ -[None done] CT interpreted by me (1pt min.). @ -[None done] U/S interpreted by me (1pt. min.). @ -[None done] What testing was considered but not performed or refused? (CT, X-rays, U/S, labs)? Why? @ -[None] What meds were considered but not given or refused? Why? @ -[None] Did you discuss the management of the patient with other professionals (professionals i.e. , PA, WEBSITE DEVELOPER, lab, RT, psych nurse, director of social services, product safety technical assistant, teacher, reserve officer, manager case)? Give summary @ -[No] Was smoking cessation discussed for >3mins.? @ -[No] Was critical care preformed (if so, how long)? @ -[No] Were there social determinants of health that impacted care today? How? (Homelessness, low income, unemployed, alcoholism, drug addiction, trans portation, low edu. Level, literacy, decrease access to med. care, snf, rehab)? @ -[No] Was there de-escalation of care discussed even if they declined (Discuss DNR or withdrawal of care, Hospice)? DNR status @ -[No] What co-morbidities impacted this encounter? (DM, HTN, Smoking, COPD, CAD, Cancer, CVA, ARF, Chemo, Hep., AIDS, mental health diagnosis, sleep apnea, morbid obesity)? @ -[None] Was patient admitted / discharged? Hospital course, mention meds given and route, prescriptions, significant lab abnormalities, going to OR and other pertinent info. @ -Discharged. This is a 72-year-old -[place] female who presents the emergency department with foreign body in left thumb. Upon arrival patient had a 3 hook for lodged in her left thumb. The patient mother was successfully removed. Patient was offered x-rays in order to rule out any retained foreign body however she refused at that time. Patient was given Toradol and tetanus vaccination during the course of the ED. Return precautions were discussed at length. Case discussed with DIAN Allison who agrees with plan of care Undiagnosed new problem with uncertain prognosis? @ -[No] Drug Therapy requiring intensive monitoring for toxicity (Heparin, Nitro, Insulin, Cardizem)? @ -[No] Were any procedures done? @ -[No] Diagnosis/symptom? @ -Tracie Pelletier in L Thumb Acute, or Chronic, or Acute on Chronic? @ -Acute Uncomplicated (without systemic symptoms) or Complicated (systemic symptoms)? @ -Uncomplicated Side effects of treatment? @ -[No] Exacerbation, Progression, or Severe Exacerbation? @ -[No] Poses a threat to life or bodily function? How? (Chest pain, [place], IA, pneumonia, PE, COPD, DKA, ARF, appy, cholecystitis, CVA, Diverticulitis, Homicidal, Suicidal, threat to staff... and all critical care pts) @ -Low likelihood Disposition Clinical Impression: Sammy pelletier in hand Disposition: HOME SELF-CARE Condition: Stable Additional Instructions: Please return to the nearest emergency department symptoms worsen or persist Prescriptions: Cephalexin [Keflex] 500 mg PO Q6HR 5 Days #20 cap Is patient prescribed a controlled substance at d/c from ED?: No Referrals: Amador Guzman MD [Primary Care Provider] - 1-2 days Time of Disposition: 12:31
[2023-02-09] MEDS ORDERED: DIPH,PERTUS(ACELL)TETVAC-LF 0.5 ML VIAL IM ONE (11:25)
[2023-02-09 12:44] VITALS: BP 131/77; PULSE 82; RESP 18; TEMP 97.9
== END 2023-02-09 12:45 | disposition home or self-care (01) ==
LOC: EC 10:50
DX: S61.449A Puncture wound with foreign body of unspecified hand, initial encounter (principal); J44.9 Chronic obstructive pulmonary disease, unspecified; I10 Essential (primary) hypertension; Z87.891 Personal history of nicotine dependence; Z79.899 Other long term (current) drug therapy; W45.8XXA Other foreign body or object entering through skin, initial encounter
CPT/HCPCS: 99283; J2001

== ENCOUNTER → 2023-10-15 | Outpatient (CLI) | payer MEDICARE ==
--- NOTE | 2023-10-18 07:38 | MM ---
Reason for Exam: Screening (asymptomatic). Last mammogram was performed 1 year(s) and 3 month(s) ago. Patient History: Menarche at age 14. First Full-Term at age 34. Late child-bearing (after 30). Left ovary removed at age 54. Right ovary removed at age 54. Hysterectomy at age 54. Postmenopausal. Niece had ovarian cancer. Sister had ovarian cancer. Risk Values: Melissa 5 year model risk: 2.4%. NCI Lifetime model risk: 6.9%. Prior Study Comparison: 04/22/2020 Bilateral Diagnostic Mammogram, [facility]. 06/20/2021 Bilateral Screening Mammogram, [facility]. 07/29/2022 Bilateral MG 3D screening mammo w/cad, [facility]. Tissue Density: There are scattered fibroglandular densities. Findings: Analyzed By CAD. There is no suspicious group of microcalcifications or new suspicious mass. Overall Assessment: Negative, BI-RAD 1 Management: Screening Mammogram of both breasts in [address] [facility] will attempt to contact patient to return for supplemental views and ultrasound if indicated. Patient should continue monthly self-breast exams. A clinical breast exam by your physician is recommended on an annual basis. This exam should not preclude additional follow-up of suspicious palpable abnormalities. Note on Melissa scores and lifetime risk: 1. A Melissa score greater than 3% is considered moderate risk. If this is the case, consider specialist referral to assess eligibility for a risk reducing agent. 2. If overall lifetime risk for the development of breast cancer is 20% or higher, the patient may qualify for future screening with alternating mammogram and breast MRI. Electronically signed and approved by: Omid Portillo DO
== END | disposition home or self-care (01) ==
LOC: RADMAMWWP 11:45
PROVIDERS: ATTEND Family Medicine
DX: Z12.31 Encounter for screening mammogram for malignant neoplasm of breast (principal); Z78.0 Asymptomatic menopausal state
CPT/HCPCS: 77063; 77067

== ENCOUNTER → 2023-12-28 | Outpatient (CLI) | payer MEDICARE ==
--- NOTE | 2023-12-28 22:32 | CT ---
EXAMINATION TYPE: CT cervical spine wo con DATE OF EXAM: 12/28/2023 COMPARISON: None HISTORY: cervical spine enthesopathy. CT DLP: 518.4 mGycm CONTRAST: None CT of the cervical spine is performed in the axial plane at 2 mm thick sections. Reconstructed image s in the coronal, and sagittal plane are reviewed on the computer. No acute fractures are evident. Scoliosis is present. Minimal anterior vertebral body spurs are present. Prevertebral space appears n ormal Diffuse loss of disc height is throughout the cervical spine. Vertebral body heights are preserved. No spinal canal stenosis is evident No neural foraminal stenosis is evident. IMPRESSION: 1. Degenerative disc changes and mild scoliosis. 2. No acute osseous abnormality cervical spine
== END | disposition home or self-care (01) ==
LOC: RADCTMAIN 16:12
PROVIDERS: ATTEND Family Medicine
DX: M46.02 Spinal enthesopathy, cervical region (principal); M50.30 Other cervical disc degeneration, unspecified cervical region; M41.82 Other forms of scoliosis, cervical region
CPT/HCPCS: 72125

== ENCOUNTER → 2024-11-10 | Outpatient (CLI) | payer MEDICARE ==
--- NOTE | 2024-11-10 10:43 | MM ---
Reason for Exam: Screening (asymptomatic). Last screening mammogram was performed 12 month(s) ago. Patient History: Menarche at age 14. First Full-Term at age 34. Late child-bearing (after 30). Left ovary removed at age 54. Right ovary removed at age 54. Hysterectomy at age 54. Postmenopausal. Niece had ovarian cancer. Sister had ovarian cancer. Risk Values: Melissa 5 year model risk: 2.4%. NCI Lifetime model risk: 6.6%. Prior Study Comparison: 06/20/2021 Bilateral Screening Mammogram, [facility]. 07/29/2022 Bilateral MG 3D screening mammo w/cad, [facility]. 10/15/2023 Bilateral MG 3D screening mammo w/cad, [facility]. Tissue Density: The breasts are heterogeneously dense, which may obscure small masses. Findings: Analyzed By CAD. Right breast: There is no suspicious group of microcalcifications or new suspicious mass. Left breast: There is no suspicious group of microcalcifications or new suspicious mass. Overall Assessment: Negative, BI-RAD 1 Management: Screening Mammogram of both breasts in [address] [facility] will attempt to contact patient to return for supplemental views and ultrasound if indicated. Patient should continue monthly self-breast exams. A clinical breast exam by your physician is recommended on an annual basis. This exam should not preclude additional follow-up of suspicious palpable abnormalities. Note on Melissa scores and lifetime risk: 1. A Melissa score greater than 3% is considered moderate risk. If this is the case, consider specialist referral to assess eligibility for a risk reducing agent. 2. If overall lifetime risk for the development of breast cancer is 20% or higher, the patient may qualify for future screening with alternating mammogram and breast MRI. [facility], , 11/10/2024 10:40 AM. Electronically signed and approved by: Omid Portillo DO
--- NOTE | 2024-11-10 13:33 | BD ---
EXAMINATION TYPE: Axial Bone Density DATE OF EXAM: 11/10/2024 CLINICAL HISTORY: 73 years old Female. ICD-10 CODE: Z78.0 MENOPAUSAL STATE , Additional History: Height: 59.5 in Weight: 166 lbs FRAX RISK QUESTIONS: History of Fracture in Adulthood: lt ankle fx age 36 Secondary Osteoporosis: 3. Menopause before 47: total hysterectomy age 44 EXAM MEASUREMENTS: Bone mineral densitometry was performed using the Kelan System. Bone mineral density as measured about the Lumbar spine is: ----- L1-L4(G/cm2): 1.064 T Score Values are as follows: ----- L1: -0.8 ----- L2: -0.9 ----- L3: -0.6 ----- L4: -1.7 ----- L1-L4: -1.0 Z Score Values are as follows: ----- L1: -0.1 ----- L2: -0.3 ----- L3: 0.0 ----- L4: -1.0 ----- L1-L4: -0.3 Bone mineral density has: Increased 3.4% since study of: 05/19/2017 Bone mineral density about the R hip (g/cm2): 0.779 Bone mineral density about the L hip (g/cm2): 0.782 T Score values are as follows: -----R Neck: -1.4 -----L Neck: -1.9 -----R Total: -1.8 -----L Total: -1.8 Z Score values are as follows: -----R Neck: -0.7 -----L Neck: -1.3 -----R Total: -1.5 -----L Total: -1.4 Bone mineral density has: Decreased -5.7% since study of: 05/19/2017 FRAX%s: The graph provided illustrates a 8.1% chance for a major osteoporotic fx and a 1.5% chance fo r the hips probability for fx in 10 years time. IMPRESSION: Osteopenia (T Score between -2.5 and -1). There is slightly increased risk of fracture and the patient may be considered for treatment. Re-Screen 2-5 years. NOTE: T-SCORE=SD OF THE YOUNG ADULT MEAN. [facility], , 11/10/2024 1:31 PM
== END | disposition home or self-care (01) ==
LOC: RADBDWWP 10:14
PROVIDERS: ATTEND Family Medicine
DX: Z12.31 Encounter for screening mammogram for malignant neoplasm of breast (principal); M85.89 Other specified disorders of bone density and structure, multiple sites; R92.333 Mammographic heterogeneous density, bilateral breasts; Z80.3 Family history of malignant neoplasm of breast; Z78.0 Asymptomatic menopausal state
CPT/HCPCS: 77063; 77067; 77080

== ENCOUNTER 2024-11-21 17:16 | Emergency (ER) | payer MEDICARE ==
[2024-11-21] MEDS: LACTATED RINGERS 1,000 ML IV ONE (18:58)
[2024-11-21 19:23] LABS: Basophils % (A) 0 %; Eosinophils # (A) 0.2 k/uL (0-0.7); Eosinophils % (A) 4 %; HCT 48.4 % (34.0-46.0); HGB 15.3 gm/dL (11.4-16.0); Lymphocytes # (A) 2.4 k/uL (1.0-4.8); Lymphocytes % (A) 41 %; MCH 27.4 pg (25.0-35.0); MCHC 31.6 g/dL (31.0-37.0); MCV 86.8 fL (80.0-100.0); Mean Platelet Volume 7.7; Monocytes # (A) 0.2 k/uL (0-1.0); Monocytes % (A) 4 %; Neutrophils # (A) 2.8 k/uL (1.3-7.7); Neutrophils % (A) 49 %; Platelet Count 267 k/uL (150-450); RBC 5.58 m/uL (3.80-5.40); RDW 13.1 % (11.5-15.5); WBC 5.8 k/uL (3.8-10.6)
[2024-11-21 19:43] LABS: ALT 30 U/L (4-34); AST 33 U/L (14-36); African American GFR (CKD) >90 (>60 ml/min/1.73 sqM); Albumin 4.5 g/dL (3.5-5.0); Alkaline Phosphatase 73 U/L (38-126); Amylase 65 U/L (30-110); Anion Gap 9 mmol/L; Blood Urea Nitrogen 10 mg/dL (7-17); Calcium 9.5 mg/dL (8.4-10.2); Carbon Dioxide 23 mmol/L (22-30); Chloride 105 mmol/L (98-107); Glucose 85 mg/dL (74-99); Lipase 180 U/L (23-300); Non-African American GFR(CKD) >90 (>60 ml/min/1.73 sqM); Sodium 137 mmol/L (137-145); Total Bilirubin 0.7 mg/dL (0.2-1.3); Total Protein 7.3 g/dL (6.3-8.2)
--- NOTE | 2024-11-21 20:16 | ED ---
General Adult HPI - General Chief complaint: Recheck/Abnormal Lab/Rx Stated complaint: Irreg CT Time Seen by Provider: 11/21/24 18:07 Source: patient Mode of arrival: ambulatory Limitations: no limitations - History of Present Illness Initial comments: 73-year-old female presenting with chief complaint of abdominal pain. Patient has been experiencing about one week of bilateral lower abdominal pain as well as nausea and vomiting. She was sent by her PCP for an outpatient CT which shows a 6 mm stone in the pancreatic duct. She was then sent here to the ER. Patient states that currently her pain is a 2 out of 10 and her nausea is under control. She is having no chest pain, difficulty breathing, urinary symptoms, diarrhea, hematochezia, melena, hematemesis. No fever, chills, cough, congestion, sore throat. No alcohol use. - Related Data Home Medications Medication Instructions Recorded Confirmed Hydrocodone/Acetaminophen 1 tab PO TID 05/08/14 11/21/24 [Hydrocodone/Acetaminophen 7.5-325] ondansetron HCL [Ondansetron HCl] 8 mg PO Q6H PRN 11/21/24 11/21/24 Previous Rx's Medication Instructions Recorded Ondansetron Odt [Zofran Odt] 4 mg PO Q8HR PRN #20 tab 11/21/24 Allergies Allergy/AdvReac Type Severity Reaction Status Date / Time No Known Allergies Allergy Verified 11/21/24 18:44 Review of Systems ROS Statement: Those systems with pertinent positive or pertinent negative responses have been documented in the HPI. ROS Other: All systems not noted in ROS Statement are negative. Past Medical History Past Medical History: Asthma, COPD, Hypertension Additional Past Medical History / Comment(s): back problems, EDEMA, cdiff History of Any Multi-Drug Resistant Organisms: C-DIFF Date of last positivie culture/infection: may 2019 MDRO Source:: stool Past Surgical History: Back Surgery, Hysterectomy Additional Past Surgical History / Comment(s): COLONOSCOPY,. BILAT CATARACT REMOVAL WITH LENS IMPLANT Past Anesthesia/Blood Transfusion Reactions: No Reported Reaction Past Psychological History: No Psychological Hx Reported Smoking Status: Former smoker Past Alcohol Use History: None Reported Past Drug Use History: None Reported - Past Family History Brother(s) Family Medical History: Cancer Additional Family Medical History / Comment(s): One brother of lung cancer and another brother of stomach cancer. Sister(s) Family Medical History: Cancer Additional Family Medical History / Comment(s): Sister of "female" cancer. General Exam Limitations: no limitations General appearance: alert, in no apparent distress Head exam: Present: atraumatic, normocephalic, normal inspection Eye exam: Present: normal appearance, EOMI Neck exam: Present: normal inspection. Absent: meningismus Respiratory exam: Present: normal lung sounds bilaterally. Absent: respiratory distress, wheezes, rales, rhonchi, stridor Cardiovascular Exam: Present: regular rate, normal rhythm, normal heart sounds. Absent: systolic murmur, diastolic murmur, rubs, gallop, clicks GI/Abdominal exam: Present: soft. Absent: distended, tenderness, guarding, rebound, rigid Neurological exam: Present: alert, oriented X3 Psychiatric exam: Present: normal affect, normal mood Skin exam: Present: warm, dry, normal color Course Vital Signs 11/21/24 11/21/24 17:24 21:22 Temperature 97.3 F L Pulse Rate 81 88 Respiratory 18 18 Rate Blood Pressure 157/83 159/101 O2 Sat by Pulse 97 95 Oximetry Medical Decision Making - Medical Decision Making Was pt. sent in by a medical professional or institution (, PA, CLEANER TOUCH UP WORKER, urgent care, hospital, or correction...) When possible be specific @ -No Did you speak to anyone other than the patient for history (EMS, parent, family, police, friend...)? What history was obtained from this source @ -No Did you review nursing and triage notes (agree or disagree)? Why? @ -I reviewed and agree with nursing and triage notes Were old charts reviewed (outside hosp., previous admission, EMS record, old EKG, old radiological studies, urgent care reports/EKG's, correction records)? Report findings @ -Reviewed outpatient CT obtained today, main pancreatic duct calcification with upstream dilation of the main pancreatic duct in the tail. Stone measuring up to 6 mm. Findings are new from prior exam in 10/24/2020. Correlate with serum lipase for pancreatitis. Consider gastric intestinal consultation. Hepatic steatosis. Colonic diverticulosis. Normal appendix. Differential Diagnosis (chest pain, altered mental status, abdominal pain women, abdominal pain men, vaginal bleeding, weakness, fever, dyspnea, syncope, headache, dizziness, GI bleed, back pain, seizure, CVA, palpatations, mental health, musculoskeletal)? @ -MDM Differential Abdominal Pain Women: Appendicitis, Cholecystitis, diverticulosis, ischemic bowel, pancreatitis, hepatitis, UTI, gastroenteritis, AAA, incarcerated hernia, bowel obstruction, constipation, inflammatory bowel, hepatitis, peptic ulcer disease, splenic infarction, perforated viscus, vulvitis, ovarian torsion, PID, kidney stone, placenta abruption... This is not meant to be an all-inclusive list EKG interpreted by me (3pts min.). @ -As above X-rays interpreted by me (1pt min.). @ -None done CT interpreted by me (1pt min.). @ -None done U/S interpreted by me (1pt. min.). @ -None done What testing was considered but not performed or refused? (CT, X-rays, U/S, labs)? Why? @ -None What meds were considered but not given or refused? Why? @ -None Did you discuss the management of the patient with other professionals (professionals i.e. , PA, CLEANER TOUCH UP WORKER, lab, RT, psych nurse, social human services assistants, critical systems technician, teacher, liaison officer, embedded case manager)? Give summary @ -I spoke with gastroenterology at [facility], he states that they do not have the resources to intervene on pancreatic duct stones I then spoke with x ray developing machine operator Dr. Roberts at [facility], she states that given the patient's normal labs and acute onset of pain, she does not think the patient needs to be transferred for immediate intervention. States that they typically do not intervene on these stones unless there is chronic severe pain. Was smoking cessation discussed for >3mins.? @ -No Was critical care preformed (if so, how long)? @ -No Were there social determinants of health that impacted care today? How? (Homelessness, low income, unemployed, alcoholism, drug addiction, transportation, low edu. Level, literacy, decrease access to med. care, half-way, rehab)? @ -No Was there de-escalation of care discussed even if they declined (Discuss DNR or withdrawal of care, Hospice)? DNR status @ -No What co-morbidities impacted this encounter? (DM, HTN, Smoking, COPD, CAD, Cancer, CVA, ARF, Chemo, Hep., AIDS, mental health diagnosis, sleep apnea, morbid obesity)? @ -None Was patient admitted / discharged? Hospital course, mention meds given and route, prescriptions, significant lab abnormalities, going to OR and other perti nent info. @ -73-year-old female presenting with chief complaint of abdominal pain nausea and vomiting. Patient has been having lower abdominal pain for about a week. Had an outpatient CT performed today which showed a main pancreatic duct stone with ductal dilation. On physical exam abdomen is soft, nontender, nondistended. Lab work requires no action. AST, ALT, bilirubin, alkaline phosphatase, amylase, lipase are WNL. Urine shows no evidence of infection. I spoke with x ray developing machine operator Dr. Roberts at [facility] who states that the patient does not need to be transferred for immediate intervention and can follow-up regarding this issue. On reassessment the patient is resting com fortably in the bed showing no acute signs of distress. She has not required any pain medication or antiemetics while she has been here. She is educated on today's findings and treatment plan. Educated on alarm symptoms that should prompt immediate reevaluation. Follow-up with PCP and GI. Report back to ER with any new or worsening symptoms. Discussed return parameters and answered all questions. Patient conveyed verbal understanding and agreed to the plan. I discussed this case in detail with my attending Dr. Levi Undiagnosed new problem with uncertain prognosis? @ -No Drug Therapy requiring intensive monitoring for toxicity (Heparin, Nitro, Insulin, Cardizem)? @ -No Were any procedures done? @ -No Diagnosis/symptom? @ -Abdominal pain, pancreatic duct stone Acute, or Chronic, or Acute on Chronic? @ -Acute Uncomplicated (without systemic symptoms) or Complicated (systemic symptoms)? @ -Uncomplicated Side effects of treatment? @ -No Exacerbation, Progression, or Severe Exacerbation? @ -No Poses a threat to life or bodily function? How? (Chest pain, [place], [place], pneumonia, PE, COPD, DKA, ARF, appy, cholecystitis, CVA, Diverticulitis, Homicidal, Suicidal, threat to staff... and all critical care pts) @ -Low likelihood - Lab Data Result diagrams: 11/21/24 18:55 11/21/24 18:55 Lab Results 11/21/24 11/21/24 11/21/24 Range/Units 18:55 18:55 18:55 WBC 5.8 (3.8-10.6) k/uL RBC 5.58 H (3.80-5.40) m/uL Hgb 15.3 (11.4-16.0) gm/dL Hct 48.4 H (34.0-46.0) % MCV 86.8 (80.0-100.0) fL MCH 27.4 (25.0-35.0) pg MCHC 31.6 (31.0-37.0) g/dL RDW 13.1 (11.5-15.5) % Plt Count 267 (150-450) k/uL MPV 7.7 Neutrophils % 49 % Lymphocytes % 41 % Monocytes % 4 % Eosinophils % 4 % Basophils % 0 % Neutrophils # 2.8 (1.3-7.7) k/uL Lymphocytes # 2.4 (1.0-4.8) k/uL Monocytes # 0.2 (0-1.0) k/uL Eosinophils # 0.2 (0-0.7) k/uL Basophils # 0.0 (0-0.2) k/uL Sodium 137 (137-145) mmol/L Potassium 4.0 (3.5-5.1) mmol/L Chloride 105 (98-107) mmol/L Carbon Dioxide 23 (22-30) mmol/L Anion Gap 9 mmol/L BUN 10 (7-17) mg/dL Creatinine 0.60 (0.52-1.04) mg/dL Est GFR (CKD-EPI)AfAm >90 (>60 ml/min/1.73 sqM) Est GFR (CKD-EPI)NonAf >90 (>60 ml/min/1.73 sqM) Glucose 85 (74-99) mg/dL Plasma Lactic Acid Antoine 0.9 (0.7-2.0) mmol/L Calcium 9.5 (8.4-10.2) mg/dL Total Bilirubin 0.7 (0.2-1.3) mg/dL AST 33 (14-36) U/L ALT 30 (4-34) U/L Alkaline Phosphatase 73 (38-126) U/L Total Protein 7.3 (6.3-8.2) g/dL Albumin 4.5 (3.5-5.0) g/dL Amylase 65 (30-110) U/L Lipase 180 (23-300) U/L Urine Color Urine Appearance (Clear) Urine pH (5.0-8.0) Ur Specific [place] (1.001-1.035) Urine Protein (Negative) Urine Glucose (UA) (Negative) Urine Ketones (Negative) Urine Blood (Negative) Urine Nitrite (Negative) Urine Bilirubin (Negative) Urine Urobilinogen (<2.0) mg/dL Ur Leukocyte Esterase (Negative) Urine RBC (0-5) /hpf Urine WBC (0-5) /hpf Ur Squamous Epith Cells (0-4) /hpf Urine Mucus (None) /hpf 11/21/24 Range/Units 21:22 WBC (3.8-10.6) k/uL RBC (3.80-5.40) m/uL Hgb (11.4-16.0) gm/dL Hct (34.0-46.0) % MCV (80.0-100.0) fL MCH (25.0-35.0) pg MCHC (31.0-37.0) g/dL RDW (11.5-15.5) % Plt Count (150-450) k/uL MPV Neutrophils % % Lymphocytes % % Monocytes % % Eosinophils % % Basophils % % Neutrophils # (1.3-7.7) k/uL Lymphocytes # (1.0-4.8) k/uL Monocytes # (0-1.0) k/uL Eosinophils # (0-0.7) k/uL Basophils # (0-0.2) k/uL Sodium (137-145) mmol/L Potassium (3.5-5.1) mmol/L Chloride (98-107) mmol/L Carbon Dioxide (22-30) mmol/L Anion Gap mmol/L BUN (7-17) mg/dL Creatinine (0.52-1.04) mg/dL Est GFR (CKD-EPI)AfAm (>60 ml/min/1.73 sqM) Est GFR (CKD-EPI)NonAf (>60 ml/min/1.73 sqM) Glucose (74-99) mg/dL Plasma Lactic Acid Antoine (0.7-2.0) mmol/L Calcium (8.4-10.2) mg/dL Total Bilirubin (0.2-1.3) mg/dL AST (14-36) U/L ALT (4-34) U/L Alkaline Phosphatase (38-126) U/L Total Protein (6.3-8.2) g/dL Albumin (3.5-5.0) g/dL Amylase (30-110) U/L Lipase (23-300) U/L Urine Color Colorless Urine Appearance Clear (Clear) Urine pH 7.0 (5.0-8.0) Ur Specific [place] 1.011 (1.001-1.035) Urine Protein Negative (Negative) Urine Glucose (UA) Negative (Negative) Urine Ketones Negative (Negative) Urine Blood Negative (Negative) Urine Nitrite Negative (Negative) Urine Bilirubin Negative (Negative) Urine Urobilinogen <2.0 (<2.0) mg/dL Ur Leukocyte Esterase Trace H (Negative) Urine RBC <1 (0-5) /hpf Urine WBC 4 (0-5) /hpf Ur Squamous Epith Cells <1 (0-4) /hpf Urine Mucus Rare H (None) /hpf Disposition Clinical Impression: Abdominal pain, Pancreatic duct calculus Disposition: HOME SELF-CARE Condition: Fair Instructions (If sedation given, give patient instructions): Abdominal Pain (ED) Additional Instructions: Follow-up with PCP and GI. Report back to ER with any new or worsening symptoms. Prescriptions: Ondansetron Odt [Zofran Odt] 4 mg PO Q8HR PRN #20 tab PRN Reason: Nausea Is patient prescribed a controlled substance at d/c from ED?: No Referrals: Amador Guzman MD [Primary Care Provider] - 1-2 days Marleni Aguirre MD [STAFF PHYSICIAN] - 1-2 days Time of Disposition: 22:11
[2024-11-21 22:06] LABS: Appearance,Urine Clear (Clear); Bilirubin,Urine Negative (Negative); Blood,Urine Negative (Negative); Color,Urine Colorless; Glucose,Urine (UA) Negative (Negative); Ketones,Urine Negative (Negative); Leukocyte Esterase,Urine Trace (Negative); Mucus,Urine Rare /hpf; Nitrite,Urine Negative (Negative); Protein,Urine Negative (Negative); RBC,Urine <1 /hpf (0-5); Specific Gravity,Urine 1.011 (1.001-1.035); Squamous Epithelial Cell,Urine <1 /hpf (0-4); Urobilinogen,Urine <2.0 mg/dL (<2.0); WBC,Urine 4 /hpf (0-5)
[2024-11-21 22:28] VITALS: BP 160/101; PULSE 82; RESP 16; TEMP 98
== END 2024-11-21 22:28 | disposition home or self-care (01) ==
LOC: EC 17:16
DX: K86.89 Other specified diseases of pancreas (principal); Z87.891 Personal history of nicotine dependence
CPT/HCPCS: 36415; 80053; 81001; 82150; 83605; 83690; 85025; 96360; 99284

== ENCOUNTER → 2024-11-21 | Outpatient (CLI) | payer MEDICARE ==
[2024-11-21 15:18] LABS: African American GFR (CKD) >90 (>60 ml/min/1.73 sqM); Blood Urea Nitrogen 12 mg/dL (7-17); Non-African American GFR(CKD) 88 (>60 ml/min/1.73 sqM)
--- NOTE | 2024-11-21 16:52 | CT ---
EXAMINATION TYPE: CT abdomen pelvis w con DATE OF EXAM: 11/21/2024 4:39 PM COMPARISON: CT abdomen pelvis most recent from 10/24/2020. CLINICAL INDICATION: Female, 73 years old with history of R10.9 UNSPECIFIED ABDOMINAL PAIN; Stomach p ain and with nausea and vomiting. TECHNIQUE: Axial CT abdomen pelvis w con;Sagittal and coronal reformats were created on a separate w orkstation. Contrast used:100 mL of Isovue 300 with IV Contrast, (none if empty) Oral contrast used: with Oral Contrast (none if empty) CT DLP: 1045 mGycm, Automated exposure control for dose reduction was used. FINDINGS: LOWER CHEST: The heart is mildly enlarged for size. ABDOMEN LIVER: Diffusely hypoattenuating parenchyma. GALLBLADDER AND BILE DUCTS: Unremarkable. PANCREAS: Main pancreatic duct demonstrates dilation in the tail with main pancreatic duct obstructin g calcification measuring 6 mm. SPLEEN: Unremarkable. ADRENAL GLANDS: Unremarkable. KIDNEYS AND URETERS: No evidence of hydronephrosis or renal calculus. The ureters are unremarkable. PELVIS BLADDER: No evidence for wall thickening or mass given limitations of exam. REPRODUCTIVE: Unremarkable. ABDOMEN & PELVIS STOMACH AND BOWEL: Stomach is mildly distended with oral contrast. No evidence of bowel obstruction. Appendix is normal. Scattered colonic diverticula.r PERITONEUM/RETROPERITONEUM: No evidence of pneumoperitoneum or free fluid. VASCULATURE: No evidence of aortic aneurysm. MUSCULOSKELETAL: No acute osseous abnormalities LYMPH NODES: No gross evidence for lymphadenopathy. SOFT TISSUE/ABDOMINAL WALL: Unremarkable IMPRESSION: 1. Pain pancreatic duct calcification with upstream dilation of the main pancreatic duct in the tail . Stone measuring up to 6 mm. Findings are new from prior exam in 10/24/2020. Correlate with serum lip ase for pancreatitis. Consider gastric intestinal consultation. 2. Hepatic steatosis. 3. Colonic diverticulosis. 4. Normal appendix. [facility], , 11/21/2024 4:50 PM
== END | disposition home or self-care (01) ==
LOC: RADCTMAIN 14:27
PROVIDERS: ATTEND Family Medicine
DX: K76.0 Fatty (change of) liver, not elsewhere classified (principal); K86.89 Other specified diseases of pancreas; K57.30 Diverticulosis of large intestine without perforation or abscess without bleeding
CPT/HCPCS: 82565; 84520; 74177; 36415; Q9967

== ENCOUNTER → 2025-01-04 | Outpatient (CLI) | payer MEDICARE, OTHER ==
--- NOTE | 2025-01-06 09:41 | MR ---
EXAMINATION TYPE: MR pancreas wo/w con DATE OF EXAM: 01/04/2025 7:14 PM INDICATION: Patient age:Female; 74 years old; Reason for study: R10.9 UNSPECIFIED ABDOMINAL PAIN R93.5 ABN FINDING; PHH. COMPARISON: CT abdomen and pelvis 11/21/2024, 10/24/2020, 07/22/2019 TECHNIQUE: Multiplanar multi-sequence imaging was performed without and with IV contrast. The patie nt was given 7.5 ccs of Gadobutrol intravenously and dynamic imaging was performed. Post IV contrast subtraction images were also submitted for review. FINDINGS: LOWER CHEST: No gross irregularity. ABDOMEN Liver: No focal lesion. Diffuse dropout of signal on out of phase imaging consistent with steatosis. Gallbladder and Bile ducts: Multiple gallstones identified. No wall thickening or surrounding inflamm atory changes. No pericholecystic fluid. No biliary ductal dilatation. No choledocholithiasis identif ied. Pancreas: There is focal abrupt dilatation of the main pancreatic duct within the mid body extending into the tail measuring up to 6 mm. This corresponds to previously seen 6 mm calculus in the duct on prior CT 11/21/2024. The remaining portion of the pancreatic duct is normal caliber. No suspicious patel creatic lesion or surrounding inflammatory changes or fluid collection. The pancreas enhances homogen eously. Spleen: Not enlarged. Incidental splenules. Adrenal glands: Unremarkable. Kidneys: No hydronephrosis. Right renal upper pole 9 mm T2 hyperintense simple cyst. Stomach and Bowel: No evidence for bowel obstruction. Distal colonic diverticulosis. Small hiatal her cierra.. Peritoneum: No evidence of pneumoperitoneum, free fluid, or adenopathy. Vasculature: Unremarkable. No aortic aneurysm. Abdominal wall: Unremarkable. Musculoskeletal: The osseous structures appear intact. Other: Uterus appears surgically absent. IMPRESSION: 1. Abrupt focal dilatation of the main pancreatic duct at the body extending into the tail. This cor responds to pancreatic ductal calculus seen on prior CT 11/21/2024. No suspicious pancreatic lesion. No MRI evidence for acute pancreatitis. 2. Cholelithiasis without evidence for choledocholithiasis or biliary ductal dilatation. 3. Hepatic steatosis. 4. Colonic diverticulosis. [facility], , 01/06/2025 9:39 AM
== END | disposition home or self-care (01) ==
LOC: RADMRIMAIN 18:00
PROVIDERS: ATTEND Family Medicine
DX: K76.0 Fatty (change of) liver, not elsewhere classified (principal); K80.20 Calculus of gallbladder without cholecystitis without obstruction; K57.30 Diverticulosis of large intestine without perforation or abscess without bleeding; R93.5 Abnormal findings on diagnostic imaging of other abdominal regions, including retroperitoneum; K86.89 Other specified diseases of pancreas
CPT/HCPCS: 74183; A9585